=== PATIENT | male | born 1950 | race Caucasian/White ===

== ENCOUNTER 2019-03-02 13:02 | Inpatient (IN) | payer OTHER, BC ==
--- NOTE | 2019-03-02 13:15 | PDOC ---
Rapid Medical Evaluation Time Seen by Provider: 03/02/19 13:13 Medical Evaluation: Allergies Allergy/AdvReac Type Severity Reaction Status Date / Time codeine Allergy Severe Rash Verified 03/02/19 10:46 03/02/19 13:13 I have performed a brief in-person evaluation of this patient The patient present with a chief complaint of: admission for spine surgery. Patient sent from pmd's office for admission through the emergency room for admission for new onset of neck pain with numbness to left arm Pertinent physical exam findings: NAD even and unlabored breathing in a motorized wheelchair I have ordered the following: labs The patient will proceed to the ED for further evaluation. 03/02/19 13:15 Discharge Disposition - Diagnosis Neck pain - Referrals - Patient Instructions - Post Discharge Activity
[2019-03-02 13:19] VITALS: BMI 29.8
--- NOTE | 2019-03-02 14:18 | PDOC ---
History of Present Illness - General Stated Complaint: SURGERY Time Seen by Provider: 03/02/19 13:13 - History of Present Illness Initial Comments: Ciaran Katz is a 68yo man with a PMH of IDDM and BLE weakness, wheelchair bound, with chronic neurological deficits initially due to an injury in 1989, s/ p multiple spinal surgeries who presents for a preoperative workup for a planned cervical spine surgery tomorrow. Mr Katz reports that he initially had a lumbar spine surgery in 1989 following a fall at work. He subsequently had a total of 7 lumbar surgeries and has residual BLE weakness and sensory deficits, now with significant muscle atrophy, and is unable to ambulate. Over time, he had several other surgeries including thoracic and cervical spine. His last 3 surgeries were completed [address] Dr Saavedra in [place] with good results. Over the past year, Mr Katz has had pain shooting down his left arm along with sensation deficit and weakness to the left hand. 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 He was seen by a neurosurgeon in [place] and told there was nothing to be done, but he sent his most recent imaging to Dr Saavedra and was told that he could come to [place] for surgery. He was seen in Dr Saavedra's office today and has a planned corrective surgery tomorrow. He presents for preoperative workup and cardiac clearance for the planned surgery. Mr Katz denies any new symptoms including fever, chills, chest pain, SOB, or new neuro symptoms other than as mentioned above. Past History - Past Medical History Allergies/Adverse Reactions: Allergies Allergy/AdvReac Type Severity Reaction Status Date / Time codeine Allergy Severe Rash Verified 03/02/19 10:46 Home Medications: Ambulatory Orders Duloxetine HCl 1 cap PO DAILY 03/02/19 Fentanyl 50 mcg TP Q3D 03/02/19 Humalog Kwikpen U-200 units SQ TID 03/02/19 Ibuprofen/Famotidine mg PO TID 03/02/19 Metformin HCl 1,000 mg PO DAILY 03/02/19 Oxycodone HCl 5 mg PO PRN PRN 03/02/19 Pennsaid PRN 03/02/19 Phenylephrine HCl 10 mg PRN 03/02/19 Tizanidine HCl 4 mg PO BID 03/02/19 Victoza - 0.6 units DAILY 03/02/19 Zolpidem Tartrate 10 mg PO HS PRN 03/02/19 Cardiac Disorders: Yes (old [place]) Diabetes: Yes - Surgical History Orthopedic Surgery: Yes (7 prior spinal surgeries [id number]) - Suicide/Smoking/Psychosocial Hx Smoking History: Never smoked Have you smoked in the past 12 months: No Information on smoking cessation initiated: No Hx Alcohol Use: No Drug/Substance Use Hx: No Substance Use Type: None Review of Systems - Review of Systems Comments:: General: No fevers, no chills, no weight or appetite change, no malaise HEENT: No changes in vision, no changes in hearing, no congestion, no sore throat CV: No chest pain, no palpitations, no LE edema Pulm: No SOB, no cough, no wheezing GI: No nausea or vomiting, no change in bowel habits, no melena : No frequency, no urgency, no dysuria Musc: No back pain, no joint swelling, no recent injury Skin: No rash, no lesions, no erythema Endo: No excessive thirst, no heat/cold intolerance Heme: No unusual bruising or bleeding, no swollen glands Neuro: No syncope, See HPI Vasc: No claudication Psych: No recent change in mood, no SI or HI *Physical Exam - Vital Signs Last Vital Signs Temp Pulse Resp BP Pulse Ox 98.4 F 78 20 169/80 99 03/02/19 13:14 03/02/19 13:14 03/02/19 13:14 03/02/19 13:14 03/02/19 13:14 - Physical Exam Comments: General: Comfortable, no acute distress HEENT: PERRL, EOMI, MMM, voice normal, normal neck ROM, no LAD Cards: RRR, no murmur appreciated Pulm: Comfortable on room air, clear to auscultation bilaterally Abd: Soft, nontender, nondistended Ext: Atraumatic. No LE edema. Moves all extremities, though weakness in BLE and L hand. 1st and 2nd left fingers "lock" in flexed position. Vasc: Extremities WWP. Skin: Normal color, no rashes or lesions Neuro: A&Ox3, CN grossly intact, normal speech, diminished sensation in BLE and LUE (can feel light touch and pressure but feels abnormal). 3/5 strength in BLE. 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 Psych: Mood appropriate to situation ED Treatment Course - LABORATORY CBC & Chemistry Diagram: 03/02/19 15:21 03/02/19 16:00 - RADIOLOGY Radiology Studies Ordered: Category Date Time Status CHEST PA & LAT [RAD] Stat Radiology 03/02/19 14:16 Ordered Medical Decision Making - Medical Decision Making 03/02/19 14:17 Ciaran Katz is a 68yo man with a PMH of IDDM and chronic BLE neurological deficits, wheelchair bound, who presents from Dr Frederick's office for admission for cervical spine surgery tomorrow due to worsening LUE pain, weakness, and sensory deficit over the past year. - Surgery scheduled with Dr Saavedra tomorrow - Preop workup ordered: CBC, CMP, mag, phos, EKG, CXR, type&screen, coags - Request for cardiology consult; will call after EKG completed 03/02/19 16:04 - Seen by Dr Lopez for admission - Seen by Dr Hicks in cardiology. Plans stress test tomorrow morning prior to surgery; requesting 2 troponins. Ordered and added to labs currently running 03/02/19 16:43 - Labs reviewed, unremarkable - Trop still not running. Lab called to inquire, will check that it was received , report that it will be run. To be repeated at 6hr - Admit to Dr Lopez's service. Discussed with Dr Thompson. Lisa Petersen PGY1 *DC/Admit/Observation/Transfer Diagnosis at time of Disposition: Neck pain, Back pain - Discharge Dispostion Condition at time of disposition: Stable - Referrals - Patient Instructions - Post Discharge Activity
--- NOTE | 2019-03-02 14:19 | PDOC ---
Attending Attestation - HPI HPI: 03/02/19 14:59 The patient is a 68 year old male, with a significant past medical history of DM and multiple lumbar surgeries (wheelchair bound), who presents to the emergency department for pre-op labs and admission for surgery. As per patient, he has spinal fusion and pain radiating down his left arm with decreased muscle strength and sensation. He notes that he is pending surgery with Dr. Saavedra. As per Dr. Saavedra, he would like admission to Dr. Hays service. He denies any recent fevers, chills, headache or dizziness. He denies any recent nausea, vomit, diarrhea or constipation. He denies any recent chest pain or shortness of breath. He denies any recent dysuria, frequency, urgency or hematuria. Allergies: Codeine. Past surgical history: Multiple lumbar surgeries. Social History: Pt. lives in [place] and is visiting [place] for neurosurgery. - Physicial Exam PE: 03/02/19 16:31 GENERAL: The patient is in no acute distress. HEAD: Normal with no signs of trauma. EYES: PERRLA, EOMI, sclera anicteric, conjunctiva clear. ENT: Ears normal, nares patent, oropharynx clear without exudates. Moist mucous membranes. LUNGS: Breath sounds equal, clear to auscultation bilaterally. No wheezes, and no crackles. HEART:Regular rate and rhythm, normal S1 and S2 without murmur, rub or gallop. ABDOMEN: Soft, nontender, normoactive bowel sounds. No guarding, no rebound. No masses palpable. EXTREMITIES: +Wheelchair bound. NEUROLOGICAL: Cranial nerves II through XII grossly intact. Normal speech. No focal neurological deficits. MUSCULOSKELETAL: No CVA tenderness SKIN: Warm, Dry, normal turgor, no rashes or lesions noted. <Mally Gardiner - Last Filed: 03/02/19 16:31> - Resident Resident Name: Lisa Petersen - ED Attending Attestation I have performed the following: I have examined & evaluated the patient, The case was reviewed & discussed with the resident, I agree w/resident's findings & plan, Exceptions are as noted - Medical Decision Making 03/02/19 14:55 68 yo M h/o DM, chronic back pain presenting with a complaint of neck pain and radicular symptoms No trauma Will do labs Will EKG Will plan to Admit Dr Saavedra to see this patient 03/02/19 16:20 EKG - NSR rate of 63 bpm, axis nml, intervals abnormal - Pr: 210ms, QRS:86ms, QTc:nml , no st elevation or depressions 03/02/19 16:29 Laboratory Tests 03/02/19 03/02/19 15:21 15:21 WBC 6.8 Hgb 16.0 Hct 45.7 Plt Count 199 INR 0.96 Admit to [facility] service <Genesis Thompson - Last Filed: 03/03/19 13:19> *DC/Admit/Observation/Transfer <Mally Gardiner - Last Filed: 03/02/19 16:31> - Discharge Dispostion Decision to Admit order: Yes <Genesis Thompson - Last Filed: 03/03/19 13:19> Diagnosis at time of Disposition: Neck pain, Back pain - Discharge Dispostion Condition at time of disposition: Stable Attestations - Attestations 03/02/19 15:00 Documentation prepared by Mally Gardiner, acting as medical affairs manager for Genesis Thompson MD. <Mally Gardiner - Last Filed: 03/02/19 16:31>
--- NOTE | 2019-03-02 15:40 | CON.CARD ---
Consult Consult Specialty:: Cardiology Reason for Consultation:: Preop cardiac eval - History of Present Illness History of Present Illness: 68 M with severe spinal disease post multiple operations. He lives in [place] and traveled here for further cervical spine operation. No previous cardiac disease history. Has long standing insulin requiring DM and is non-ambulatory. There is no previous history of CAD, heart failure or arrhythmia. No prior cardiac complication after surgeries. He uses multiple analgesics for pain control. - History Source History Provided By: Patient Limitations to Obtaining History: No Limitations - Past Medical History Cardio/Vascular: No: Aortic Stenosis, CAD, CHF, HTN, Hyperlipdemia, VA, Mitral Stenosis, Murmur, Pulmonary Hypertension - Alcohol/Substance Use Hx Alcohol Use: No - Smoking History Smoking history: Never smoked Have you smoked in the past 12 months: No Home Medications - Allergies Allergies/Adverse Reactions: Allergies Allergy/AdvReac Type Severity Reaction Status Date / Time codeine Allergy Severe Rash Verified 03/02/19 10:46 - Home Medications Home Medications: Ambulatory Orders Unobtainable 03/02/19 Review of Systems - Review of Systems Constitutional: reports: No Symptoms Eyes: reports: No Symptoms HENT: reports: No Symptoms Neck: reports: No Symptoms Cardiovascular: reports: No Symptoms Respiratory: reports: No Symptoms Gastrointestinal: reports: No Symptoms Genitourinary: reports: No Symptoms Vital Signs: Vital Signs Temperature 98.4 F 03/02/19 13:14 Pulse Rate 78 03/02/19 13:14 Respiratory Rate 20 03/02/19 13:14 Blood Pressure 169/80 03/02/19 13:14 O2 Sat by Pulse Oximetry (%) 99 03/02/19 13:14 Constitutional: Yes: Well Nourished, No Distress Eyes: Yes: Conjunctiva Clear, EOM Intact HENT: Yes: Atraumatic, Normocephalic Neck: Yes: Supple, Trachea Midline Respiratory: Yes: Regular, CTA Bilaterally Gastrointestinal: Yes: Normal Bowel Sounds, Soft Cardiovascular: Yes: Regular Rate and Rhythm JVD: No Carotid Bruit: No PMI: Non-Displaced Heart Sounds: Yes: S1, S2 Murmur: No: Systolic Murmur, Diastolic Murmur Edema: Yes Edema: LLE: 1+, RLE: 1+ Problem List - Problems (1) Back pain Code(s): M54.9 - DORSALGIA, UNSPECIFIED Qualifiers: Back pain location: back pain in other location Chronicity: chronic Qualified Code(s): M54.9 - Dorsalgia, unspecified; G89.29 - Other chronic pain Assessment/Plan Seen in preoperative consultation for spinal surgery. Pt is non-ambulatory with long-standing IRDM. No angina or heart failure symptoms. ECG Lexiscan nuclear stress test as in-patient. Will follow test results and make further recommendations regarding preoperative risk.
[2019-03-02 16:15] LABS: EOS % 3.8 % (0-4.5); HEMATOCRIT 45.7 % (35.4-49); LYMPH % 30.4 % (8-40); MCH 31.6 pg (25.7-33.7); MCHC 35.1 g/dl (32.0-35.9); MEAN PLT VOLUME 8.4 fl (7.5-11.1); MONO % 8.5 % (3.8-10.2); NEUT % 55.3 % (42.8-82.8); PLATELET COUNT 199 K/MM3 (134-434); RBC 5.08 M/mm3 (4.00-5.60); RDW 13.5 % (11.9-15.9); WHITE BLOOD COUNT 6.8 K/mm3 (4.0-10.0)
[2019-03-02 16:26] LABS: INR 0.96 (0.83-1.09); PROTHROMBIN TIME (PATIENT) 11.3 SEC (9.7-13.0)
[2019-03-02 16:29] LABS: ACTIVATED PTT 29.5 SECONDS (25.2-36.5)
[2019-03-02 16:32] LABS: MAGNESIUM 2.3 mg/dL (1.8-2.4); PHOSPHOROUS 4.1 mg/dL (2.5-4.9)
[2019-03-02 16:34] LABS: ALBUMIN 4.2 g/dl (3.4-5.0); ALK PHOS 65 U/L (45-117); ANION GAP 6 MMOL/L (8-16); BILIRUBIN,TOTAL 0.5 mg/dL (0.2-1); BLOOD UREA NITROGEN 17 mg/dL (7-18); CALCIUM 9.1 mg/dL (8.5-10.1); CHLORIDE 106 mmol/L (98-107); CO2 25 mmol/L (21-32); CREATININE 0.7 mg/dL (0.55-1.3); GLUCOSE,RANDOM 99 mg/dL (74-106); POTASSIUM 3.8 mmol/L (3.5-5.1); SGOT/AST 36 U/L (15-37); SGPT/ALT 55 U/L (13-61); SODIUM 138 mmol/L (136-145); TOT PROT 7.5 g/dl (6.4-8.2)
--- NOTE | 2019-03-02 20:48 | HP ---
CHIEF COMPLAINT: Neck Pain, Back Pain, Muscle Weakness PCP: Dr. Frederick HISTORY OF PRESENT ILLNESS: This is a pleasant 68 y/o man from [place] with a PMHx of Diabetes Mellitus, Chronic Back Pain, BLE weakness, wheelchair bound with chronic neurological deficits initially due to an injury in 1989, multiple Spinal Surgeries. Who presents to the ED with a complaint of neck pain and radicular symptoms with decreased muscle strength and sensation. Patient was sent in for admission by Dr. Ledy Saavedra for planned cervical spine surgery tomorrow. Patient denies any new symptoms including fever, chills, SOB, CP, palpitations, AP, N/V/D, constipation. ER course was notable for: (1) (2) (3) Recent Travel: from [place] PAST MEDICAL HISTORY: See HPI PAST SURGICAL HISTORY: See HPI Social History: Smoking: Never Alcohol: None Drugs: None Family History: Allergies codeine Allergy (Severe, Verified 03/02/19 10:46) Rash HOME MEDICATIONS: Home Medications Medication Instructions Recorded Unobtainable 03/02/19 REVIEW OF SYSTEMS CONSTITUTIONAL: Absent: fever, chills, diaphoresis, generalized weakness, malaise, loss of appetite, weight change HEENT: Absent: rhinorrhea, nasal congestion, throat pain, throat swelling, difficulty swallowing, mouth swelling, ear pain, eye pain, visual changes CARDIOVASCULAR: Absent: chest pain, syncope, palpitations, irregular heart rate, lightheadedness , peripheral edema RESPIRATORY: Absent: cough, shortness of breath, dyspnea with exertion, orthopnea, wheezing, stridor, hemoptysis GASTROINTESTINAL: Absent: abdominal pain, abdominal distension, nausea, vomiting, diarrhea, constipation, melena, hematochezia GENITOURINARY: Absent: dysuria, frequency, urgency, hesitancy, hematuria, flank pain, genital pain MUSCULOSKELETAL: back pain, neck pain Absent: myalgia, arthralgia, joint swelling SKIN: Absent: rash, itching, pallor HEMATOLOGIC/IMMUNOLOGIC: Absent: easy bleeding, easy bruising, lymphadenopathy, frequent infections ENDOCRINE: Absent: unexplained weight gain, unexplained weight loss, heat intolerance, cold intolerance NEUROLOGIC: focal weakness or paresthesias unsteady gait Absent: headache, dizziness, seizure, mental status changes, bladder or bowel incontinence PSYCHIATRIC: Absent: anxiety, depression, suicidal or homicidal ideation, hallucinations. PHYSICAL EXAMINATION Vital Signs - 24 hr 03/02/19 03/02/19 13:14 18:49 Temperature 98.4 F 96.1 F L Pulse Rate 78 Pulse Rate [ 65 Right] Respiratory 20 12 Rate Blood Pressure 169/80 Blood Pressure 149/78 [Left] O2 Sat by Pulse 99 Oximetry (%) GENERAL: Awake, alert, and fully oriented, in no acute distress. HEAD: Normal with no signs of trauma. EYES: Pupils equal, round and reactive to light, extraocular movements intact, sclera anicteric, conjunctiva clear. No lid lag. EARS, NOSE, THROAT: Ears normal, nares patent, oropharynx clear without exudates. Moist mucous membranes. NECK: Normal range of motion, supple without lymphadenopathy, JVD, or masses. LUNGS: Breath sounds equal, clear to auscultation bilaterally. No wheezes, and no crackles. No accessory muscle use. HEART: Regular rate and rhythm, normal S1 and S2 without murmur, rub or gallop. ABDOMEN: Soft, nontender, not distended, normoactive bowel sounds, no guarding, no rebound, no masses. No hepatomegaly or splenomegaly. MUSCULOSKELETAL: Normal range of motion at all joints. No bony deformities, No CVA tenderness. Posterior Cervical and Lumbar TTP UPPER EXTREMITIES: 2+ pulses, warm, well-perfused. No cyanosis. No clubbing. No peripheral edema. LOWER EXTREMITIES: 2+ pulses, warm, well-perfused. No calf tenderness. No peripheral edema. NEUROLOGICAL: Cranial nerves II-XII intact. Normal speech. Gait not observed. DTR 0 b/l PSYCHIATRIC: Cooperative. Good eye contact. Appropriate mood and affect. SKIN: Warm, dry, normal turgor, no rashes or lesions noted, normal capillary refill. Laboratory Results - last 24 hr 03/02/19 03/02/19 03/02/19 15:21 15:21 15:21 WBC 6.8 RBC 5.08 Hgb 16.0 Hct 45.7 MCV 90.0 MCH 31.6 MCHC 35.1 RDW 13.5 Plt Count 199 MPV 8.4 Absolute Neuts (auto) 3.7 Neutrophils % 55.3 Lymphocytes % 30.4 Monocytes % 8.5 Eosinophils % 3.8 Basophils % 2.0 Nucleated RBC % 0 PT with INR 11.30 INR 0.96 PTT (Actin FS) 29.5 Sodium Potassium Chloride Carbon Dioxide Anion Gap BUN Creatinine Creat Clearance w eGFR Random Glucose Calcium Phosphorus 4.1 Magnesium 2.3 Total Bilirubin AST ALT Alkaline Phosphatase Creatine Kinase Troponin I Total Protein Albumin Blood Type Antibody Screen 03/02/19 03/02/19 15:21 16:00 WBC RBC Hgb Hct MCV MCH MCHC RDW Plt Count MPV Absolute Neuts (auto) Neutrophils % Lymphocytes % Monocytes % Eosinophils % Basophils % Nucleated RBC % PT with INR INR PTT (Actin FS) Sodium 138 Potassium 3.8 Chloride 106 Carbon Dioxide 25 Anion Gap 6 L BUN 17 Creatinine 0.7 Creat Clearance w eGFR 111.82 Random Glucose 99 Calcium 9.1 Phosphorus Magnesium Total Bilirubin 0.5 AST 36 ALT 55 Alkaline Phosphatase 65 Creatine Kinase 119 Troponin I < 0.02 Total Protein 7.5 Albumin 4.2 Blood Type A POSITIVE Antibody Screen Negative ASSESSMENT/PLAN: This is a 68 y/o man admitted for Intractable Cervical and Lumbar Pain with Radiculopathy for further evaluation of their emergent condition. 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 - New Patient This patient is new to me today: Yes Date on this admission: 03/02/19 - Critical Care Critical Care patient: No
[2019-03-02] MEDS ORDERED: CHLORHEXIDINE GLUCONATE 4% CLEANSER FOR DECOLONIZATION TP SCH (22:00)
[2019-03-03] MEDS ORDERED: DEXTROSE 5%-0.45% SALINE 1,000 ML IV SCH ×3 (00:01→18:37)
[2019-03-03 07:57] LABS: EOS % 5.5 % (0-4.5); HEMATOCRIT 40.9 % (35.4-49); HEMOGLOBIN 14.5 GM/dL (11.7-16.9); LYMPH % 29.6 % (8-40); MCH 31.7 pg (25.7-33.7); MCHC 35.5 g/dl (32.0-35.9); MEAN CELL VOLUME 89.4 fl (80-96); MEAN PLT VOLUME 8.3 fl (7.5-11.1); MONO % 9.9 % (3.8-10.2); PLATELET COUNT 185 K/MM3 (134-434); RBC 4.58 M/mm3 (4.00-5.60); RDW 13.1 % (11.9-15.9); WHITE BLOOD COUNT 5.3 K/mm3 (4.0-10.0)
[2019-03-03 08:51] LABS: ANION GAP 8 MMOL/L (8-16); BLOOD UREA NITROGEN 15 mg/dL (7-18); CHLORIDE 107 mmol/L (98-107); CO2 24 mmol/L (21-32); CREATININE 0.7 mg/dL (0.55-1.3); GLUCOSE,RANDOM 180 mg/dL (74-106); POTASSIUM 3.7 mmol/L (3.5-5.1); SODIUM 138 mmol/L (136-145)
[2019-03-03] MEDS ORDERED: REGADENOSON 0.4 MG/5 ML PRE-FILLED SYRINGE IVPUSH ONE ×2 (09:22→09:45)
--- NOTE | 2019-03-03 10:10 | PN ---
Progress Note, Physician History of Present Illness: seen and examined today in nad. no overnight events. no new complaints. - Current Medication List Current Medications: Active Medications Dextrose/Sodium Chloride (D5-1/2ns -) 1,000 mls @ 75 mls/hr IV ASDIR ELKE Last Admin: 03/03/19 00:48 Dose: 75 mls/hr - Objective Vital Signs: Vital Signs Temperature 98 F 03/03/19 06:00 Pulse Rate 66 03/03/19 06:00 Respiratory Rate 18 03/03/19 06:00 Blood Pressure 165/86 03/03/19 06:00 O2 Sat by Pulse Oximetry (%) 99 03/02/19 13:14 Constitutional: Yes: No Distress, Calm Eyes: Yes: Conjunctiva Clear, EOM Intact HENT: Yes: Atraumatic, Normocephalic Neck: Yes: Supple, Trachea Midline Cardiovascular: Yes: Regular Rate and Rhythm, S1, S2. No: Bradycardia, Tachycardia, Pulse Irregular, Bruit, JVD, Gallop, Murmur, Rub, S3, S4, Varicosities Respiratory: Yes: Regular, CTA Bilaterally. No: Rales, Rhonchi, Wheezes Gastrointestinal: Yes: Normal Bowel Sounds, Soft. No: Distention, Tenderness Edema: No Peripheral Pulses WNL: Yes Neurological: Yes: Alert, Oriented Psychiatric: Yes: Alert, Oriented Labs: CBC, BMP 03/03/19 07:00 03/03/19 07:00 INR, PTT INR 0.96 (0.83-1.09) 03/02/19 15:21 - ....Imaging Chest X-ray: Report Reviewed, Image Reviewed EKG: Report Reviewed, Image Reviewed Other: Report Reviewed, Image Reviewed Assessment/Plan Seen in preoperative consultation for spinal surgery. Pt is non-ambulatory with long-standing IRDM. No angina or heart failure symptoms. Preop for spinal surgery Fup ECG Lexiscan nuclear stress test today Echo done today. BP is above intermediate designer goal but is adequate for surgery, likely exacerbated by discomfort. Monitor BP perioperatively and treat as needed. If no significant ischemia on nuclear stress test and no significant structural abnl on echo pt would be acceptable to proceed from a cardiac standpoint.
[2019-03-03] MEDS ORDERED: oxyCODONE HCL 5 MG TABLET PO PRN (11:22)
[2019-03-03] MEDS ORDERED: FENTANYL PATCH WASTE TD PRN ×3 (11:23→18:43)
--- NOTE | 2019-03-03 11:27 | PN ---
Progress Note, Physician Chief Complaint: 1st degree AV block Pre-op Cervical laminectomy Paraplegia History of Present Illness: NAD Fup ECG Lexiscan nuclear stress test today Echo done today. 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 Monitor BP perioperatively and treat as needed. If no significant ischemia on nuclear stress test and no significant structural abnl on echo pt would be acceptable to proceed from a cardiac standpoint. Seen by cardiology - Current Medication List Current Medications: Active Medications Dextrose/Sodium Chloride (D5-1/2ns -) 1,000 mls @ 75 mls/hr IV ASDIR ELKE Last Admin: 03/03/19 00:48 Dose: 75 mls/hr - Objective Vital Signs: Vital Signs Temperature 98 F 03/03/19 06:00 Pulse Rate 66 03/03/19 06:00 Respiratory Rate 18 03/03/19 06:00 Blood Pressure 165/86 03/03/19 06:00 O2 Sat by Pulse Oximetry (%) 99 03/02/19 13:14 Constitutional: Yes: Well Nourished, No Distress, Calm Cardiovascular: Yes: Regular Rate and Rhythm Respiratory: Yes: Regular Gastrointestinal: Yes: WNL Genitourinary: Yes: WNL Musculoskeletal: Yes: Other (BLLE wekaness) Edema: No Peripheral Pulses WNL: Yes Neurological: Yes: Alert, Oriented Psychiatric: Yes: Alert, Oriented Labs: CBC, BMP 03/03/19 07:00 03/03/19 07:00 INR, PTT INR 0.96 (0.83-1.09) 03/02/19 15:21 Problem List - Problems (1) Cervical spondylitis Assessment/Plan: -Seen by Neurosurgery -plan for cervical laminectomy and exploration TODAY -awaiting cardiology clearance -awaiting stress test, ecg -echo results pending Code(s): M46.92 - UNSPECIFIED INFLAMMATORY SPONDYLOPATHY, CERVICAL REGION (2) Paraplegia Code(s): G82.20 - PARAPLEGIA, UNSPECIFIED (3) Muscle weakness of extremity Code(s): M62.81 - MUSCLE WEAKNESS (GENERALIZED) (4) Diabetes Assessment/Plan: -BGM AC HS -Novolog sliding scale -check A1c Code(s): E11.9 - TYPE 2 DIABETES MELLITUS WITHOUT COMPLICATIONS Qualifiers: Diabetes mellitus type: type 2 (5) HTN (hypertension) Assessment/Plan: -decrease IVF -Lisinopril 5 mg po daily Code(s): I10 - ESSENTIAL (PRIMARY) HYPERTENSION Assessment/Plan See problem list Pending cardiology clearance, pt is medically stable for surgery with acceptable OR risks.
[2019-03-03] MEDS ORDERED: BENZOIN TINCTURE SWABSTICK TP ONE (11:28)
[2019-03-03] MEDS ORDERED: BUPIVACAINE HCL/PF 0.5% (5MG/ML) 10 ML VIAL ONE (11:28)
[2019-03-03] MEDS ORDERED: GENTAMICIN SO4 80 MG/2 ML VIAL ONE ×2 (11:28→17:24)
[2019-03-03] MEDS ORDERED: LIDOCAINE 1%-EPI 1:100,000 30 ML MDV IJ ONE ×2 (11:28→16:58)
[2019-03-03] MEDS ORDERED: THROMBIN (BOVINE) 20,000 UNIT VIAL TP ONE ×3 (11:29→17:19)
[2019-03-03] MEDS ORDERED: LISINOPRIL 5 MG TABLET (FP) PO SCH (11:30)
[2019-03-03] MEDS ORDERED: fentaNYL 50mcg/hr PATCH.TD72 TD SCH (11:30)
[2019-03-03] MEDS ORDERED: DULoxetine HCL 30 MG CAPSULE.DR (FP) PO SCH (11:30)
--- NOTE | 2019-03-03 12:24 | PN ---
Progress Note (short form) - Note Progress Note: Nuclear stress test showed no ischemia and normal LVEF. Echo showed Normal LV systolic function and no significant valvular abnormalities. No additional cardiac testing is needed preoperatively. Pt is acceptable from a cardiac standpoint to proceed with surgery with perioperative recommendations as previously stated.
[2019-03-03] MEDS ORDERED: BACITRACIN 15 GM TUBE TOPICAL OINTMENT ONE (12:38)
[2019-03-03] MEDS ORDERED: ONDANSETRON 4 MG/2 ML VIAL ONE (12:44)
[2019-03-03] MEDS ORDERED: ceFAZolin SODIUM 1 GM VIAL ONE ×2 (12:44→16:59)
[2019-03-03] MEDS ORDERED: SODIUM CHLORIDE 0.9% P/F 10 ML VIAL IJ ONE ×2 (12:44→13:36)
[2019-03-03] MEDS ORDERED: LIDOCAINE HCL/PF 2% SDV 5ML VIAL ONE (12:44)
[2019-03-03] MEDS ORDERED: DEXAMETHASONE SOD PHOSPHATE 4 MG/1 ML VIAL ONE (12:44)
[2019-03-03] MEDS ORDERED: PROPOFOL 20 ML ONE ×2 (12:47→13:49)
[2019-03-03] MEDS ORDERED: ROCURONIUM BROMIDE 50 MG/5 ML VIAL ONE ×3 (12:48→16:10)
[2019-03-03] MEDS ORDERED: MIDAZOLAM HCL 2 MG/2 ML SINGLE DOSE VIAL ONE (12:48)
[2019-03-03] MEDS ORDERED: KETAMINE HCL 200 MG/20 ML VIAL ONE (12:52)
[2019-03-03] MEDS ORDERED: DEXMEDETOMIDINE HCL 200 MCG/2 ML IVPB ONE (13:01)
[2019-03-03] MEDS ORDERED: MAGNESIUM SULF 50% (8.12 MEQ/2 ML-1 GM VIAL) ONE (13:01)
[2019-03-03] MEDS ORDERED: BUPIVACAINE HCL/PF 0.25% (2.5MG/ML) 10 ML VIAL ONE (13:19)
[2019-03-03] MEDS ORDERED: BUPIVACAINE LIPOSOME/PF (EXPAREL) 266 MG/20 ML VIAL ONE (13:38)
[2019-03-03] MEDS ORDERED: VANCOMYCIN 1,000 MG VIAL (RESTRICTED TO ID ONLY) ONE (13:45)
[2019-03-03] MEDS ORDERED: ceFAZolin SODIUM 1 GM VIAL IVPB ONE ×3 (14:07)
[2019-03-03] MEDS ORDERED: VANCOMYCIN 1,000 MG VIAL (RESTRICTED TO ID ONLY) IVPB ONE ×2 (14:07)
[2019-03-03] MEDS ORDERED: LIDOCAINE 1%/EPI 1:100000 (20 ML MULTI DOSE VIAL) IJ ONE ×2 (14:13)
[2019-03-03] MEDS ORDERED: GLYCOPYRROLATE 0.2 MG/1 ML VIAL ONE ×2 (14:38→17:15)
[2019-03-03] MEDS ORDERED: DESFLURANE GAS 240 ML BOTTLE IH ONE (14:43)
[2019-03-03] MEDS ORDERED: BUPIVACAINE HCL/PF 0.25% (2.5MG/ML) 10 ML VIAL IJ ONE (16:13)
[2019-03-03] MEDS ORDERED: BUPIVACAINE LIPOSOME/PF (EXPAREL) 266 MG/20 ML VIAL NR ONE (16:13)
[2019-03-03] MEDS ORDERED: NEOSTIGMINE METHYLSULFATE 0.5 MG/1 ML - 10 ML MDV ONE (17:10)
[2019-03-03] MEDS ORDERED: ONDANSETRON 4 MG/2 ML VIAL IVPUSH PRN ×3 (18:11→18:37)
[2019-03-03] MEDS ORDERED: HYDROmorphone *PCA* 10MG/50ML DISP.SYRIN PCA SCH (18:15)
[2019-03-03] MEDS ORDERED: LACTATED RINGERS SOLUTION 1,000 ML IV SCH ×2 (18:15→18:37)
[2019-03-03] MEDS: HYDROmorphone *PCA* 10MG/50ML DISP.SYRIN PCA SCH (18:20)
[2019-03-03] MEDS ORDERED: diphenhydrAMINE HCL 25 MG CAPSULE (FP) PO PRN (18:30)
[2019-03-03] MEDS ORDERED: FENTANYL PATCH WASTE MC PRN (18:37)
--- NOTE | 2019-03-03 19:02 | OP ---
Operative Note - Note: Operative Date: 03/03/19 Pre-Operative Diagnosis: Cervical Spondylosis and kyphosis Operation: Exploration of spinal fusion with C2-C7 Laminectomies and shinto of lordosis with Lateral mass screw instrumentation, Exploration of spinal fusion and removal of anterior plate/hardware. Post-Operative Diagnosis: Same as Pre-op Surgeon: Luc Saavedra Button Sewer Hand: Cierra Murphy Anesthesiologist/CARD DOFFER: Jarek Arellano Anesthesia: General, Local Specimens Removed: anterior plate and screws Estimated Blood Loss (mls): 320 Drains & Tubes with Location: JORGE Right paravetebral c-spine Drains, Volume Out (mls): 400 (quintanilla) Fluid Volume Replaced (mls): 1,900 Operative Report Dictated: Yes
[2019-03-03] MEDS: SODIUM CHLORIDE 1,000 ML IV SCH (20:30)
[2019-03-03] MEDS ORDERED: TIZANIDINE HCL 2 MG TABLET PO SCH (22:00)
[2019-03-03] MEDS ORDERED: DOCUSATE SODIUM 100 MG CAPSULE (FP) PO SCH ×2 (22:00)
[2019-03-03] MEDS ORDERED: TIZANIDINE HCL 4 MG TABLET PO SCH (22:00)
[2019-03-03] MEDS: DOCUSATE SODIUM 100 MG CAPSULE (FP) PO SCH (22:21)
[2019-03-03] MEDS: HEPARIN NA (PORCINE) 5,000 UNITS/ML 1ML VIAL SQ SCH (22:21)
[2019-03-03] MEDS ORDERED: ZOLPIDEM TARTRATE 5 MG TABLET PO ONE (22:45)
[2019-03-04] MEDS: CEFAZOLIN 1 GM/D5W 1 GM/50 ML BAG IVPB SCH ×3 (01:00→17:13)
[2019-03-04] MEDS: HYDROmorphone *PCA* 10MG/50ML DISP.SYRIN PCA SCH ×2 (04:45→19:38)
[2019-03-04] MEDS: HEPARIN NA (PORCINE) 5,000 UNITS/ML 1ML VIAL SQ SCH ×3 (06:25→22:28)
[2019-03-04] MEDS: DOCUSATE SODIUM 100 MG CAPSULE (FP) PO SCH ×3 (06:25→22:27)
[2019-03-04] MEDS: TIZANIDINE HCL 4 MG TABLET PO SCH ×3 (06:26→14:35)
[2019-03-04] MEDS: INSULIN SLIDING SCALE (NOVOLOG) 1 VIAL SQ SCH ×4 (06:27→17:13)
[2019-03-04] MEDS: SODIUM CHLORIDE 1,000 ML IV SCH ×2 (06:32→11:57)
[2019-03-04] MEDS ORDERED: metFORMIN HCL 500 MG TABLET (FP) PO SCH (07:00)
[2019-03-04 07:03] LABS: BASO % 0.4 % (0-2.0); EOS % 0.1 % (0-4.5); HEMATOCRIT 36.8 % (35.4-49); HEMOGLOBIN 12.6 GM/dL (11.7-16.9); LYMPH % 5.8 % (8-40); MCH 30.9 pg (25.7-33.7); MCHC 34.4 g/dl (32.0-35.9); MEAN CELL VOLUME 89.9 fl (80-96); MEAN PLT VOLUME 8.4 fl (7.5-11.1); MONO % 10.5 % (3.8-10.2); NEUT % 83.2 % (42.8-82.8); PLATELET COUNT 208 K/MM3 (134-434); RBC 4.09 M/mm3 (4.00-5.60); RDW 13.2 % (11.9-15.9)
[2019-03-04 07:51] LABS: ALBUMIN 3.3 g/dl (3.4-5.0); ALK PHOS 49 U/L (45-117); ANION GAP 7 MMOL/L (8-16); BILIRUBIN,TOTAL 0.6 mg/dL (0.2-1); BLOOD UREA NITROGEN 15 mg/dL (7-18); CALCIUM 8.2 mg/dL (8.5-10.1); CHLORIDE 108 mmol/L (98-107); CO2 27 mmol/L (21-32); CREATININE 0.7 mg/dL (0.55-1.3); GLUCOSE,RANDOM 177 mg/dL (74-106); POTASSIUM 4.4 mmol/L (3.5-5.1); SGOT/AST 28 U/L (15-37); SGPT/ALT 36 U/L (13-61); SODIUM 142 mmol/L (136-145); TOT PROT 5.8 g/dl (6.4-8.2)
--- NOTE | 2019-03-04 08:53 | PN ---
Progress Note (short form) - Note Progress Note: Surgery POD #1 Exploration of spinal fusion with C2-C7 Laminectomies and holiness of lordosis with Lateral mass screw instrumentation, Exploration of spinal. Patient seen and examined at bedside c/o pain control issues overnight which have improved this morning. He states his UE radicular pain L>R is unchanged from his pre-op symptoms with no new symptoms. He denies any SOB, N/V Fever or chills. Vital Signs Temp 99.1 F 03/04/19 06:46 Pulse 96 H 03/04/19 06:56 Resp 18 03/04/19 06:56 BP 136/71 03/04/19 06:56 Pulse Ox 99 03/03/19 22:00 Intake & Output 03/03/19 03/03/19 03/04/19 11:59 23:59 11:59 Intake Total 450 2275 1000 Output Total 375 1660 520 Balance 75 615 480 Intake: IV 450 2275 950 D5-1/2Ns - 1,000 ml @ 75 450 75 mls/hr IV ASDIR ELKE Rx#: [id number] Normal Saline - 1,000 ml 950 @ 100 mls/hr IV ASDIR ELKE Rx#:[id number] IVPB 50 Output: Drainage 40 20 Right Neck 20 Urine 375 1300 500 Void 375 300 500 Estimated Blood Loss 320 Other: Voiding Method Urinal Indwelling Catheter # Unmeasured Voids Void 2 Bowel Movement No CBC, BMP 03/04/19 05:30 03/04/19 05:30 PE: A&Ox3, NAD Unlabored resp on RA Neck: Anterior dressing C/D/I with surrounding tissue intact, mild edema with no evidence to tracking erythema, no evidence of active d/c. Trachea midline with no deviation. Posterior dressing C/D/I with surrounding tissue intact, mild edema with no evidence to tracking erythema, no evidence of active d/c. Drain in good position with Doug bloody d/c. B/L US 5/5 loan consultant strength, with sensation to light touch intact throughout. B/L LE Compartments soft, supple and non-tender to palpation, feet warm and well perfused with + dp pulses. Problem List - Problems (1) Status post cervical spinal fusion Assessment/Plan: POD #1 cervical laminectomy/ deocompression and fusion with anterior JOSE FRANCISCO, patient doing well with pain now controlled. 1) pain consult today ordered with Dr Liriano 2) Continue c-collar 23 hours day 3) OOB to chair as tolerated with PT 4) Continue DVT prophylaxis with b/l scds, and SQ heparin Evaluation and plan discussed with Dr Saavedra Code(s): Z98.1 - ARTHRODESIS STATUS
[2019-03-04] MEDS: LISINOPRIL 5 MG TABLET (FP) PO SCH ×2 (09:09→10:04)
[2019-03-04] MEDS: DULoxetine HCL 30 MG CAPSULE.DR (FP) PO SCH (09:09)
[2019-03-04] MEDS: FERROUS SO4 325 MG TABLET (FP) PO SCH (09:09)
[2019-03-04] MEDS: FOLIC ACID 1 MG TABLET (FP) PO SCH (09:10)
[2019-03-04] MEDS ORDERED: DULOXETINE HCL PO SCH (10:00)
--- NOTE | 2019-03-04 11:34 | PN ---
Progress Note, Physician Chief Complaint: 1st degree AV block Pre-op Cervical laminectomy Paraplegia History of Present Illness: NAD S/P cervical laminectomy and exploration Seen by cardiology - Current Medication List Current Medications: Active Medications Diphenhydramine HCl (Benadryl -) 25 mg PO Q6H PRN PRN Reason: FOR ITCHING Docusate Sodium (Colace -) 100 mg PO TID [facility] Last Admin: 03/04/19 06:25 Dose: 100 mg Duloxetine HCl (Cymbalta -) 60 mg PO DAILY [facility] Last Admin: 03/04/19 09:09 Dose: 60 mg Fentanyl (Duragesic 50mcg Patch -) 1 patch TD Q72H [facility] Stop: 03/10/19 11:24 Ferrous Sulfate (Feosol -) 325 mg PO DAILY@0800 [facility] Last Admin: 03/04/19 09:09 Dose: 325 mg Folic Acid (Folic Acid -) 1 mg PO DAILY [facility] Last Admin: 03/04/19 09:10 Dose: 1 mg Heparin Sodium (Porcine) (Heparin -) 5,000 unit SQ TID [facility] Last Admin: 03/04/19 06:25 Dose: 5,000 unit Hydromorphone HCl (Dilaudid Plasterer Journeyman -) 10 mg BLOCK CHOPPER HAND BLOCK CHOPPER HAND [facility]; Protocol Stop: 03/06/19 18:12 Last Admin: 03/04/19 04:45 Dose: 10 mg Cefazolin Sodium (Ancef 1 Gm Premixed Ivpb -) 1 gm in 50 mls @ 100 mls/hr IVPB Q8H [facility] Last Admin: 03/04/19 09:09 Dose: 100 mls/hr Sodium Chloride (Normal Saline -) 1,000 mls @ 125 mls/hr IV ASDIR [facility] Insulin Aspart (Novolog Vial Sliding Scale -) 1 vial SQ TIDAC [facility]; Protocol Last Admin: 03/04/19 07:45 Dose: Not Given Miscellaneous (Duragesic Patch Waste) 1 each MC PRN PRN PRN Reason: PAIN Ondansetron HCl (Zofran Injection) 4 mg IVPUSH Q6H PRN PRN Reason: NAUSEA Tizanidine HCl (Tizanidine Hcl) 4 mg PO TID [facility] Last Admin: 03/04/19 06:26 Dose: 4 mg - Objective Vital Signs: Vital Signs Temperature 98.9 F 03/04/19 10:46 Pulse Rate 84 04/03/19 10:46 Respiratory Rate 20 03/04/19 10:46 Blood Pressure 104/57 L 03/04/19 10:46 O2 Sat by Pulse Oximetry (%) 99 03/03/19 22:00 Constitutional: Yes: Well Nourished, No Distress, Calm Neck: Yes: Decreased ROM, Other (neck collar) Cardiovascular: Yes: Regular Rate and Rhythm Respiratory: Yes: Regular Gastrointestinal: Yes: Normal Bowel Sounds, Soft Musculoskeletal: Yes: Back Pain, Muscle Weakness Extremities: Yes: WNL Edema: No Peripheral Pulses WNL: Yes Neurological: Yes: Alert, Oriented Psychiatric: Yes: Alert, Oriented Labs: CBC, BMP 03/04/19 05:30 03/04/19 05:30 INR, PTT INR 0.96 (0.83-1.09) 03/02/19 15:21 Problem List - Problems (1) Cervical spondylitis Assessment/Plan: -Seen by Neurosurgery -s/p cervical laminectomy and exploration -On BLOCK CHOPPER HAND -Seen by Dr Liriano-pain management -change pain medicaion regimen as follows: d/c fentanyl and oxycodone d/c BLOCK CHOPPER HAND in AM start MS contin 15 mg po bid with MS IR 15 Q6H PRN Start Gabapentin 300 mg po tid Code(s): M46.92 - UNSPECIFIED INFLAMMATORY SPONDYLOPATHY, CERVICAL REGION (2) Paraplegia Code(s): G82.20 - PARAPLEGIA, UNSPECIFIED (3) Muscle weakness of extremity Code(s): M62.81 - MUSCLE WEAKNESS (GENERALIZED) (4) Diabetes Assessment/Plan: -BGM AC HS -Novolog sliding scale -A1c 6.4 Code(s): E11.9 - TYPE 2 DIABETES MELLITUS WITHOUT COMPLICATIONS Qualifiers: Diabetes mellitus type: type 2 (5) HTN (hypertension) Assessment/Plan: -monitor trend -became hypotensive this AM -hold lisinopril -Increase IVF to 125 ml/hr Code(s): I10 - ESSENTIAL (PRIMARY) HYPERTENSION Assessment/Plan See problem list Rehab as per surgery
[2019-03-04] MEDS ORDERED: morphine SULFATE IMMEDIATE RELEASE 30 MG TAB PO PRN (11:51)
[2019-03-04] MEDS: morphine SO4 SUSTAINED ACTING 15 MG TABLET.SA PO SCH ×2 (12:38→22:27)
--- NOTE | 2019-03-04 14:14 | PN ---
Progress Note (short form) - Note Progress Note: ANESTHESIA POSTOP 68 YO MALE POD#1 C2-C7 STABILIZATION UNDER GA FOR ACUTE SPINAL SYNDROME Patient resting comfortably in bed. Reports pain is better controlled today. He has been OOB to chair and uses his IS as directed. Tolerating PO. VSS, afebrile Continue current care, encouraged ambulation per orders and use of IS. No anesthetic complications. Will continue to follow ARMY MANAGER use.
--- NOTE | 2019-03-04 14:31 | PN ---
Progress Note, Physician Chief Complaint: Pain is mostly controlled. No dyspnea, chest pain - Current Medication List Current Medications: Active Medications Diphenhydramine HCl (Benadryl -) 25 mg PO Q6H PRN PRN Reason: FOR ITCHING Docusate Sodium (Colace -) 100 mg PO TID [facility] Last Admin: 03/04/19 06:25 Dose: 100 mg Duloxetine HCl (Cymbalta -) 60 mg PO DAILY [facility] Last Admin: 03/04/19 09:09 Dose: 60 mg Ferrous Sulfate (Feosol -) 325 mg PO DAILY@0800 [facility] Last Admin: 03/04/19 09:09 Dose: 325 mg Folic Acid (Folic Acid -) 1 mg PO DAILY [facility] Last Admin: 03/04/19 09:10 Dose: 1 mg Gabapentin (Neurontin -) 300 mg PO TID [facility] Heparin Sodium (Porcine) (Heparin -) 5,000 unit SQ TID [facility] Last Admin: 03/04/19 06:25 Dose: 5,000 unit Hydromorphone HCl (Dilaudid Sales Assistant Displays -) 10 mg AIR BRAKE TESTER AIR BRAKE TESTER [facility]; Protocol Stop: 03/06/19 18:12 Last Admin: 03/04/19 04:45 Dose: 10 mg Cefazolin Sodium (Ancef 1 Gm Premixed Ivpb -) 1 gm in 50 mls @ 100 mls/hr IVPB Q8H [facility] Last Admin: 03/04/19 09:09 Dose: 100 mls/hr Sodium Chloride (Normal Saline -) 1,000 mls @ 125 mls/hr IV ASDIR [facility] Last Admin: 03/04/19 11:57 Dose: 125 mls/hr Insulin Aspart (Novolog Vial Sliding Scale -) 1 vial SQ TIDAC [facility]; Protocol Last Admin: 03/04/19 11:56 Dose: 4 units Miscellaneous (Duragesic Patch Waste) 1 each MC PRN PRN PRN Reason: PAIN Morphine Sulfate (Msir -) 15 mg PO Q6H PRN PRN Reason: PAIN LEVEL 6-10 Morphine Sulfate (Ms Contin -) 15 mg PO BID [facility] Last Admin: 03/04/19 12:38 Dose: 15 mg Ondansetron HCl (Zofran Injection) 4 mg IVPUSH Q6H PRN PRN Reason: NAUSEA Tizanidine HCl (Tizanidine Hcl) 4 mg PO TID [facility] Last Admin: 03/04/19 06:26 Dose: 4 mg - Objective Vital Signs: Vital Signs Temperature 98.9 F 03/04/19 10:46 Pulse Rate 84 03/04/19 10:46 Respiratory Rate 20 03/04/19 12:45 Blood Pressure 104/57 L 03/04/19 10:46 O2 Sat by Pulse Oximetry (%) 99 03/03/19 22:00 Constitutional: Yes: Well Nourished, No Distress Eyes: Yes: Conjunctiva Clear HENT: Yes: Normocephalic Neck: Yes: Supple, Trachea Midline Cardiovascular: Yes: Regular Rate and Rhythm, S1, S2. No: JVD Respiratory: Yes: Regular, CTA Bilaterally Edema: No Labs: CBC, BMP 03/04/19 05:30 03/04/19 05:30 INR, PTT INR 0.96 (0.83-1.09) 03/02/19 15:21 Problem List - Problems (1) Back pain Code(s): M54.9 - DORSALGIA, UNSPECIFIED Assessment/Plan No evidence of ischemic heart disease on preoperative testing. Normal LV function. Continue primary prevention. Will see as needed.
[2019-03-04] MEDS: GABAPENTIN 300 MG CAPSULE (FP) PO SCH ×2 (14:35→22:28)
[2019-03-05] MEDS: CEFAZOLIN 1 GM/D5W 1 GM/50 ML BAG IVPB SCH ×3 (00:04→18:32)
[2019-03-05] MEDS: TIZANIDINE HCL 4 MG TABLET PO SCH ×4 (00:04→21:37)
[2019-03-05] MEDS: HYDROmorphone *PCA* 10MG/50ML DISP.SYRIN PCA SCH (01:57)
[2019-03-05] MEDS: HEPARIN NA (PORCINE) 5,000 UNITS/ML 1ML VIAL SQ SCH ×3 (05:59→21:38)
[2019-03-05] MEDS: INSULIN SLIDING SCALE (NOVOLOG) 1 VIAL SQ SCH ×3 (05:59→18:32)
[2019-03-05] MEDS: GABAPENTIN 300 MG CAPSULE (FP) PO SCH ×3 (05:59→21:37)
[2019-03-05] MEDS: DOCUSATE SODIUM 100 MG CAPSULE (FP) PO SCH ×3 (05:59→21:38)
[2019-03-05] MEDS ORDERED: INSULIN (NOVOLOG) ASPART 100 UNITS/ML 10ML VIAL ONE (06:47)
[2019-03-05] MEDS: FERROUS SO4 325 MG TABLET (FP) PO SCH (07:55)
[2019-03-05 08:59] LABS: BASO % 0.6 % (0-2.0); EOS % 2.8 % (0-4.5); HEMATOCRIT 30.3 % (35.4-49); HEMOGLOBIN 10.6 GM/dL (11.7-16.9); LYMPH % 11.4 % (8-40); MCH 31.6 pg (25.7-33.7); MCHC 34.9 g/dl (32.0-35.9); MEAN CELL VOLUME 90.7 fl (80-96); MEAN PLT VOLUME 8.4 fl (7.5-11.1); MONO % 10.9 % (3.8-10.2); NEUT % 74.3 % (42.8-82.8); PLATELET COUNT 125 K/MM3 (134-434); RBC 3.34 M/mm3 (4.00-5.60)
[2019-03-05 09:15] LABS: ALBUMIN 2.8 g/dl (3.4-5.0); ALK PHOS 43 U/L (45-117); ANION GAP 5 MMOL/L (8-16); BILIRUBIN,TOTAL 0.7 mg/dL (0.2-1); BLOOD UREA NITROGEN 13 mg/dL (7-18); CALCIUM 7.8 mg/dL (8.5-10.1); CHLORIDE 103 mmol/L (98-107); CO2 28 mmol/L (21-32); CREATININE 0.5 mg/dL (0.55-1.3); GLUCOSE,RANDOM 213 mg/dL (74-106); POTASSIUM 4.4 mmol/L (3.5-5.1); SGOT/AST 21 U/L (15-37); SGPT/ALT 26 U/L (13-61); SODIUM 136 mmol/L (136-145); TOT PROT 5.3 g/dl (6.4-8.2)
[2019-03-05] MEDS: FOLIC ACID 1 MG TABLET (FP) PO SCH (10:09)
[2019-03-05] MEDS: DULoxetine HCL 30 MG CAPSULE.DR (FP) PO SCH (10:09)
[2019-03-05] MEDS: morphine SO4 SUSTAINED ACTING 15 MG TABLET.SA PO SCH (10:10)
[2019-03-05] MEDS ORDERED: ONDANSETRON 4 MG/2 ML VIAL IVPUSH PRN ×2 (10:54→18:34)
[2019-03-05] MEDS ORDERED: DEXAMETHASONE SOD PHOSPHATE 4 MG/1 ML VIAL IVPUSH PRN (10:54)
[2019-03-05] MEDS ORDERED: PROMETHAZINE HCL 25 MG/1 ML VIAL IVPB PRN (10:54)
[2019-03-05] MEDS ORDERED: HYDROmorphone *PCA* 10MG/50ML DISP.SYRIN PCA SCH ×2 (11:00→18:34)
[2019-03-05] MEDS ORDERED: LACTATED RINGERS SOLUTION 1,000 ML IV SCH (11:00)
[2019-03-05] MEDS ORDERED: MIDAZOLAM HCL 2 MG/2 ML SINGLE DOSE VIAL ONE (11:03)
[2019-03-05] MEDS ORDERED: PROPOFOL 20 ML ONE (11:03)
[2019-03-05] MEDS ORDERED: ROCURONIUM BROMIDE 50 MG/5 ML VIAL ONE ×2 (11:04→13:20)
[2019-03-05] MEDS ORDERED: LIDOCAINE HCL/PF 2% SDV 5ML VIAL ONE (11:04)
[2019-03-05] MEDS ORDERED: DESFLURANE GAS 240 ML BOTTLE IH ONE (11:44)
[2019-03-05 11:55] LABS: PLATELET ESTIMATE SLT DECREASE
[2019-03-05] MEDS ORDERED: LIDOCAINE 1%/EPI 1:100000 (50 ML MULTI DOSE VIAL) INF ONE (11:56)
[2019-03-05] MEDS ORDERED: ceFAZolin SODIUM 1 GM VIAL IVPB ONE (12:00)
[2019-03-05] MEDS ORDERED: SODIUM CHLORIDE 0.9% P/F 10 ML VIAL IJ ONE ×2 (12:01→12:15)
[2019-03-05] MEDS ORDERED: ceFAZolin SODIUM 1 GM VIAL ONE (12:01)
[2019-03-05] MEDS ORDERED: VANCOMYCIN 1,000 MG VIAL (RESTRICTED TO ID ONLY) ONE (12:01)
[2019-03-05] MEDS ORDERED: ONDANSETRON 4 MG/2 ML VIAL ONE (12:02)
[2019-03-05] MEDS ORDERED: VANCOMYCIN 1,000 MG VIAL (RESTRICTED TO ID ONLY) IVPB ONE (12:02)
[2019-03-05] MEDS ORDERED: DEXAMETHASONE SOD PHOSPHATE 4 MG/1 ML VIAL ONE (12:02)
[2019-03-05] MEDS ORDERED: ePHEDrine SULFATE 50 MG/1 ML AMPULE ONE (12:14)
[2019-03-05] MEDS ORDERED: HYDROGEN PEROXIDE 473 ML PO ONE (12:18)
[2019-03-05] MEDS ORDERED: BACITRACIN 50,000 UNITS VIAL TP ONE (12:18)
[2019-03-05] MEDS ORDERED: THROMBIN (BOVINE) 5,000 UNIT VIAL TP ONE (12:18)
[2019-03-05] MEDS ORDERED: GENTAMICIN SO4 80 MG/2 ML VIAL IVPB ONE (12:18)
[2019-03-05] MEDS ORDERED: GELATIN, ABSORBABLE 12-7MM EACH SPONGE TP ONE (12:18)
[2019-03-05] MEDS ORDERED: GENTAMICIN SO4 80 MG/2 ML VIAL ONE (13:31)
[2019-03-05] MEDS ORDERED: GLYCOPYRROLATE 0.2 MG/1 ML VIAL ONE (13:55)
[2019-03-05] MEDS ORDERED: NEOSTIGMINE METHYLSULFATE 0.5 MG/1 ML - 10 ML MDV ONE (13:56)
[2019-03-05] MEDS ORDERED: BUPIVACAINE LIPOSOME/PF (EXPAREL) 266 MG/20 ML VIAL ONE (14:00)
[2019-03-05] MEDS ORDERED: BUPIVACAINE LIPOSOME/PF (EXPAREL) 266 MG/20 ML VIAL IJ ONE (14:08)
[2019-03-05] MEDS ORDERED: BUPIVACAINE HCL/PF (5 MG/ML) 30 ML VIAL IJ ONE (14:08)
--- NOTE | 2019-03-05 14:49 | PN ---
Progress Note, Physician Chief Complaint: seen in pacu awake alert - Current Medication List Current Medications: Active Medications Dexamethasone Sodium Phosphate (Decadron Injection -) 4 mg IVPUSH ONCE PRN PRN Reason: NAUSEA AND/OR VOMITING Diphenhydramine HCl (Benadryl -) 25 mg PO Q6H PRN PRN Reason: FOR ITCHING Diphenhydramine HCl (Benadryl Injection -) 12.5 mg IVPUSH ONCE PRN PRN Reason: FOR ITCHING Docusate Sodium (Colace -) 100 mg PO TID [facility] Last Admin: 03/05/19 05:59 Dose: Not Given Duloxetine HCl (Cymbalta -) 60 mg PO DAILY [facility] Last Admin: 03/05/19 10:09 Dose: Not Given Fentanyl (Sublimaze Injection -) 50 mcg IVPUSH [id number] PRN PRN Reason: PAIN-PACU ORDER X 4 DOSES ONLY Ferrous Sulfate (Feosol -) 325 mg PO DAILY@0800 [facility] Last Admin: 03/05/19 07:55 Dose: Not Given Folic Acid (Folic Acid -) 1 mg PO DAILY [facility] Last Admin: 03/05/19 10:09 Dose: Not Given Gabapentin (Neurontin -) 300 mg PO TID [facility] Last Admin: 03/05/19 05:59 Dose: Not Given Heparin Sodium (Porcine) (Heparin -) 5,000 unit SQ TID [facility] Last Admin: 03/05/19 05:59 Dose: Not Given Hydromorphone HCl (Dilaudid Assembly Press Operator -) 10 mg LINEN CONTROLLER LINEN CONTROLLER [facility]; Protocol Stop: 03/06/19 18:12 Last Admin: 03/05/19 01:57 Dose: 10 mg Hydromorphone HCl (Dilaudid Assembly Press Operator -) 10 mg LINEN CONTROLLER LINEN CONTROLLER [facility]; Protocol Stop: 03/12/19 10:54 Cefazolin Sodium (Ancef 1 Gm Premixed Ivpb -) 1 gm in 50 mls @ 100 mls/hr IVPB Q8H [facility] Last Admin: 03/05/19 08:59 Dose: 100 mls/hr Sodium Chloride (Normal Saline -) 1,000 mls @ 125 mls/hr IV ASDIR [facility] Last Admin: 03/04/19 11:57 Dose: 125 mls/hr Lactated Ringer's (Lactated Ringers Solution) 1,000 mls @ 125 mls/hr IV ASDIR [facility] Insulin Aspart (Novolog Vial Sliding Scale -) 1 vial SQ TIDAC [facility]; Protocol Last Admin: 03/05/19 10:10 Dose: Not Given Miscellaneous (Duragesic Patch Waste) 1 each MC PRN PRN PRN Reason: PAIN Morphine Sulfate (Msir -) 15 mg PO Q6H PRN PRN Reason: PAIN LEVEL 6-10 Morphine Sulfate (Ms Contin -) 15 mg PO BID [facility] Last Admin: 03/05/19 10:10 Dose: Not Given Ondansetron HCl (Zofran Injection) 4 mg IVPUSH Q6H PRN PRN Reason: NAUSEA Ondansetron HCl (Zofran Injection) 4 mg IVPUSH Q4H PRN PRN Reason: NAUSEA AND/OR VOMITING Promethazine HCl (Phenergan Injection -) 12.5 mg IVPB Q6H PRN PRN Reason: NAUSEA AND/OR VOMITING Tizanidine HCl (Tizanidine Hcl) 4 mg PO TID [facility] Last Admin: 03/05/19 05:59 Dose: Not Given - Objective Vital Signs: Vital Signs Temperature 98.8 F 03/05/19 09:29 Pulse Rate 85 03/05/19 09:29 Respiratory Rate 18 03/05/19 09:29 Blood Pressure 142/64 03/05/19 09:29 O2 Sat by Pulse Oximetry (%) 95 03/05/19 09:00 Constitutional: Yes: Calm HENT: Yes: Other Neck: Yes: Other (neck collar drain serosanginous discharge) Cardiovascular: Yes: Regular Rate and Rhythm, S1, S2 Respiratory: Yes: CTA Bilaterally Gastrointestinal: Yes: Normal Bowel Sounds, Soft Edema: No Labs: CBC, BMP 03/05/19 07:58 03/05/19 07:58 INR, PTT INR 0.96 (0.83-1.09) 03/02/19 15:21 Problem List - Problems (1) Cervical spondylitis Assessment/Plan: - Note: Operative Date: 03/03/19 Pre-Operative Diagnosis: Cervical Spondylosis and kyphosis Operation: Exploration of spinal fusion with C2-C7 Laminectomies and temple of lordosis with Lateral mass screw instrumentation, Exploration of spinal fusion and removal of anterior plate/hardware. Post-Operative Diagnosis: Same as Pre-op Surgeon: Luc Saavedra Peanut Cleaner: Cierra Murphy Anesthesiologist/BOBCAT DRIVER/LABOR: Jarek Arellano Anesthesia: General, Local Specimens Removed: anterior plate and screws Estimated Blood Loss (mls): 320 Drains & Tubes with Location: JORGE Right paravetebral c-spine Drains, Volume Out (mls): 400 (quintanilla) Fluid Volume Replaced (mls): 1,900 Operative Report Dictated: Yes iv abx pain control - train station agent pump heparin sb q neck collar ct neck pending Code(s): M46.92 - UNSPECIFIED INFLAMMATORY SPONDYLOPATHY, CERVICAL REGION
[2019-03-05] MEDS ORDERED: METOPROLOL TARTRATE 5 MG/5 ML VIAL ONE (14:50)
[2019-03-05] MEDS ORDERED: HYDROmorphone *PCA* 10MG/50ML DISP.SYRIN PCA ONE ×2 (15:07→15:15)
--- NOTE | 2019-03-05 15:42 | OP ---
Operative Note - Note: Operative Date: 03/05/19 Pre-Operative Diagnosis: Cervical osteophyte Operation: Posterior cervical wound exploration & osteotomies, Lateral foraminal deompression Post-Operative Diagnosis: Same as Pre-op Surgeon: Luc Saavedra Master Of Ceremonies: Marc Bowen Anesthesiologist/HULL LINE CREW MEMBER: Hudson Dorsey Anesthesia: General Estimated Blood Loss (mls): 900 Operative Report Dictated: Yes
[2019-03-05] MEDS ORDERED: ACETAMINOPHEN INJECTION 100 ML IVPB ONE (16:57)
[2019-03-05] MEDS ORDERED: ACETAMINOPHEN 1000 MG/100 ML VIAL (NON FORMULARY) IVPB ONE ×2 (17:00)
[2019-03-05] MEDS: SODIUM CHLORIDE 1,000 ML IV SCH (18:33)
[2019-03-05] MEDS ORDERED: diphenhydrAMINE HCL 25 MG CAPSULE (FP) PO PRN (18:34)
[2019-03-05] MEDS: LACTATED RINGERS SOLUTION 1,000 ML IV SCH (21:00)
[2019-03-05] MEDS ORDERED: ZOLPIDEM TARTRATE 5 MG TABLET PO ONE (21:45)
[2019-03-06] MEDS ORDERED: CEFAZOLIN 1 GM/D5W 1 GM/50 ML BAG IVPB SCH
[2019-03-06] MEDS: CEFAZOLIN 1 GM/D5W 1 GM/50 ML BAG IVPB SCH ×3 (00:54→17:15)
[2019-03-06] MEDS: INSULIN SLIDING SCALE (NOVOLOG) 1 VIAL SQ SCH ×3 (06:22→17:16)
[2019-03-06] MEDS: LACTATED RINGERS SOLUTION 1,000 ML IV SCH ×2 (06:26→20:55)
[2019-03-06] MEDS: TIZANIDINE HCL 4 MG TABLET PO SCH ×3 (06:26→21:39)
[2019-03-06] MEDS: DOCUSATE SODIUM 100 MG CAPSULE (FP) PO SCH ×3 (06:26→21:39)
[2019-03-06] MEDS: HEPARIN NA (PORCINE) 5,000 UNITS/ML 1ML VIAL SQ SCH ×3 (06:27→21:39)
[2019-03-06] MEDS: GABAPENTIN 300 MG CAPSULE (FP) PO SCH ×3 (06:27→21:39)
--- NOTE | 2019-03-06 09:26 | PN ---
Progress Note (short form) - Note Progress Note: POD 1, s/p Posterior cervical wound exploration & osteotomies, Lateral foraminal deompression, POD 3, s/p Exploration of spinal fusion with C2-C7 Laminectomies/sikhism of lordosis, Exploration of spinal fusion and removal of anterior plate Pt seen and examined this morning. Pt somnolent and difficult to arouse. Anesthesia contact to d/c SPANISHER. Vital Signs Temp 98.9 F 03/06/19 05:00 Pulse 94 H 03/06/19 05:00 Resp 18 03/06/19 05:00 BP 150/70 03/06/19 05:00 Pulse Ox 98 03/05/19 21:00 Intake & Output 03/05/19 03/06/19 03/06/19 23:59 11:59 23:59 Intake Total 350 Output Total 2870 540 Balance -2520 -540 Intake: IV 250 Oral 100 Output: Drainage 70 40 Right Neck 55 40 Urine 1900 500 Bush 400 500 Estimated Blood Loss 900 Other: Voiding Method Indwelling Catheter Bowel Movement No No CBC, BMP 03/05/19 07:58 03/05/19 07:58 Gen: somnolent, difficult to arouse. Resp: unlabored on RA Back: dressings c/d/i. Drain in place with serous drainage in reservoir, tubing stripped. 55ml JORGE output overnight Neuro: Unable to obtain full exam due to pts state. Follows commands, moves b/l UE/LE easily, lifts extremities off bed. 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 Oversedated, anesthesia contacted immediately for d/c SPANISHER and new pain regimen. Afebrile, VSS. -Pain control per anesthesia -Keep drain in place, monitor and record output (changed to Bile bag this afternoon around 1500) -Continue Anceg 1g q8hrs while drain is in place -PT -Continue c-collar 23 hours day -Continue DVT prophylaxis with b/l scds, and SQ heparin d/w attending Dr Guerin
[2019-03-06] MEDS: FOLIC ACID 1 MG TABLET (FP) PO SCH (09:52)
[2019-03-06] MEDS: FERROUS SO4 325 MG TABLET (FP) PO SCH (09:52)
[2019-03-06] MEDS: DULoxetine HCL 30 MG CAPSULE.DR (FP) PO SCH (09:56)
--- NOTE | 2019-03-06 10:59 | PN ---
Progress Note (short form) - Note Progress Note: 68M POD1 s/p C3-7 ostrotomy and foraminotomy under GA-ETT with dilaudid IV ADMINISTRATIVE LAW JUDGE. Pt extremely somnolent, and difficult to arouse. In the interest of patient's safety, d/c ADMINISTRATIVE LAW JUDGE today. Start IV tylenol. Consider oral narcotic for breakthrough pain when patient is more arousable.
[2019-03-06] MEDS ORDERED: fentaNYL 50mcg/hr PATCH.TD72 TD SCH (11:30)
[2019-03-06] MEDS: ACETAMINOPHEN 1000 MG/100 ML VIAL (NON FORMULARY) IVPB SCH ×3 (11:37→22:10)
[2019-03-06] MEDS ORDERED: INSULIN (NOVOLOG) ASPART 100 UNITS/ML 10ML VIAL ONE (12:10)
--- NOTE | 2019-03-06 13:25 | PN ---
Progress Note, Physician Chief Complaint: patient seen and examiend sleeping - Current Medication List Current Medications: Active Medications Acetaminophen (Ofirmev Injection -) 1,000 mg IVPB Q6H [facility] Stop: 03/07/19 05:01 Last Admin: 03/06/19 11:37 Dose: 1,000 mg Diphenhydramine HCl (Benadryl -) 25 mg PO Q6H PRN PRN Reason: FOR ITCHING Docusate Sodium (Colace -) 100 mg PO TID [facility] Last Admin: 03/06/19 06:26 Dose: 100 mg Duloxetine HCl (Cymbalta -) 60 mg PO DAILY [facility] Last Admin: 03/06/19 09:56 Dose: 60 mg Ferrous Sulfate (Feosol -) 325 mg PO DAILY@0800 [facility] Last Admin: 03/06/19 09:52 Dose: 325 mg Folic Acid (Folic Acid -) 1 mg PO DAILY [facility] Last Admin: 03/06/19 09:52 Dose: 1 mg Gabapentin (Neurontin -) 300 mg PO TID [facility] Last Admin: 03/06/19 06:27 Dose: 300 mg Heparin Sodium (Porcine) (Heparin -) 5,000 unit SQ TID [facility] Last Admin: 03/06/19 06:27 Dose: 5,000 unit Lactated Ringer's (Lactated Ringers Solution) 1,000 mls @ 125 mls/hr IV ASDIR [facility] Last Admin: 03/06/19 06:26 Dose: 125 mls/hr Cefazolin Sodium (Ancef 1 Gm Premixed Ivpb -) 1 gm in 50 mls @ 100 mls/hr IVPB Q8H-IV [facility] Last Admin: 03/06/19 09:52 Dose: 100 mls/hr Insulin Aspart (Novolog Vial Sliding Scale -) 1 vial SQ TIDAC [facility]; Protocol Last Admin: 03/06/19 12:14 Dose: 4 units Ondansetron HCl (Zofran Injection) 4 mg IVPUSH Q6H PRN PRN Reason: NAUSEA Tizanidine HCl (Tizanidine Hcl) 4 mg PO TID [facility] Last Admin: 03/06/19 06:26 Dose: 4 mg - Objective Vital Signs: Vital Signs Temperature 98.9 F 03/06/19 05:00 Pulse Rate 94 H 03/06/19 05:00 Respiratory Rate 18 03/06/19 05:00 Blood Pressure 150/70 03/06/19 05:00 O2 Sat by Pulse Oximetry (%) 98 03/05/19 21:00 Constitutional: Yes: Calm Neck: Yes: Other (neck colar with drain serosanginous discharge) Cardiovascular: Yes: Regular Rate and Rhythm, S1, S2 Respiratory: Yes: CTA Bilaterally Gastrointestinal: Yes: Normal Bowel Sounds, Soft Edema: No Labs: CBC, BMP 03/05/19 07:58 03/05/19 07:58 INR, PTT INR 0.96 (0.83-1.09) 03/02/19 15:21 Problem List - Problems (1) Cervical spondylitis Assessment/Plan: - Note: Operative Date: 03/03/19 Pre-Operative Diagnosis: Cervical Spondylosis and kyphosis Operation: Exploration of spinal fusion with C2-C7 Laminectomies and sikh of lordosis with Lateral mass screw instrumentation, Exploration of spinal fusion and removal of anterior plate/hardware. Post-Operative Diagnosis: Same as Pre-op Surgeon: Luc Saavedra Armor Officer: Cierra Murphy Anesthesiologist/LEISURE STUDIES PROFESSOR: Jarek Arellano Anesthesia: General, Local Specimens Removed: anterior plate and screws Estimated Blood Loss (mls): 320 Drains & Tubes with Location: JORGE Right paravetebral c-spine Drains, Volume Out (mls): 400 (quintanilla) Fluid Volume Replaced (mls): 1,900 Operative Report Dictated: Yes iv abx pain control - solderer furnace pump stop today heparin sb q neck collar and drain noted ct neck noted Code(s): M46.92 - UNSPECIFIED INFLAMMATORY SPONDYLOPATHY, CERVICAL REGION
[2019-03-06] MEDS ORDERED: PT OWN MED DRAWER 7, Y5N ONE ×2 (13:32→21:15)
[2019-03-07] MEDS: CEFAZOLIN 1 GM/D5W 1 GM/50 ML BAG IVPB SCH ×3 (02:57→17:16)
[2019-03-07] MEDS: LACTATED RINGERS SOLUTION 1,000 ML IV SCH ×2 (06:23→14:59)
[2019-03-07] MEDS: ACETAMINOPHEN 1000 MG/100 ML VIAL (NON FORMULARY) IVPB SCH (06:26)
[2019-03-07] MEDS: DOCUSATE SODIUM 100 MG CAPSULE (FP) PO SCH ×3 (06:26→22:24)
[2019-03-07] MEDS: GABAPENTIN 300 MG CAPSULE (FP) PO SCH ×4 (06:26→22:25)
[2019-03-07] MEDS: HEPARIN NA (PORCINE) 5,000 UNITS/ML 1ML VIAL SQ SCH ×3 (06:26→22:25)
[2019-03-07] MEDS: TIZANIDINE HCL 4 MG TABLET PO SCH ×3 (06:27→22:26)
[2019-03-07] MEDS: INSULIN SLIDING SCALE (NOVOLOG) 1 VIAL SQ SCH ×3 (06:27→17:16)
[2019-03-07 08:24] LABS: BASO % 0.7 % (0-2.0); EOS % 4.9 % (0-4.5); HEMATOCRIT 24.4 % (35.4-49); HEMOGLOBIN 8.6 GM/dL (11.7-16.9); LYMPH % 16.4 % (8-40); MCH 31.4 pg (25.7-33.7); MCHC 35.2 g/dl (32.0-35.9); MEAN CELL VOLUME 89.1 fl (80-96); MONO % 8.7 % (3.8-10.2); NEUT % 69.3 % (42.8-82.8); PLATELET COUNT 127 K/MM3 (134-434); RBC 2.74 M/mm3 (4.00-5.60); RDW 12.2 % (11.9-15.9); WHITE BLOOD COUNT 6.6 K/mm3 (4.0-10.0)
[2019-03-07 08:29] LABS: ALBUMIN 2.3 g/dl (3.4-5.0); ALK PHOS 45 U/L (45-117); ANION GAP 7 MMOL/L (8-16); BLOOD UREA NITROGEN 11 mg/dL (7-18); CALCIUM 7.5 mg/dL (8.5-10.1); CHLORIDE 101 mmol/L (98-107); CO2 29 mmol/L (21-32); CREATININE 0.5 mg/dL (0.55-1.3); GLUCOSE,RANDOM 219 mg/dL (74-106); POTASSIUM 3.9 mmol/L (3.5-5.1); SGOT/AST 29 U/L (15-37); SGPT/ALT 23 U/L (13-61); SODIUM 137 mmol/L (136-145); TOT PROT 4.8 g/dl (6.4-8.2)
[2019-03-07] MEDS: FERROUS SO4 325 MG TABLET (FP) PO SCH (08:45)
[2019-03-07] MEDS: DULoxetine HCL 30 MG CAPSULE.DR (FP) PO SCH (11:00)
[2019-03-07] MEDS: FOLIC ACID 1 MG TABLET (FP) PO SCH (11:01)
[2019-03-07] MEDS ORDERED: PT OWN MED DRAWER 7, Y5N ONE ×2 (13:23→22:23)
[2019-03-07] MEDS ORDERED: FENTANYL PATCH WASTE MC PRN (14:15)
[2019-03-07] MEDS ORDERED: traMADol HCL 50 MG TABLET PO SCH (14:15)
--- NOTE | 2019-03-07 14:19 | PN ---
Progress Note, Physician - Current Medication List Current Medications: Active Medications Diphenhydramine HCl (Benadryl -) 25 mg PO Q6H PRN PRN Reason: FOR ITCHING Docusate Sodium (Colace -) 100 mg PO TID [facility] Last Admin: 03/07/19 13:27 Dose: 100 mg Duloxetine HCl (Cymbalta -) 60 mg PO DAILY [facility] Last Admin: 03/07/19 11:00 Dose: 60 mg Fentanyl (Duragesic 50mcg Patch -) 1 patch TD Q72H [facility] Stop: 03/14/19 14:15 Ferrous Sulfate (Feosol -) 325 mg PO DAILY@0800 [facility] Last Admin: 03/07/19 08:45 Dose: 325 mg Folic Acid (Folic Acid -) 1 mg PO DAILY [facility] Last Admin: 03/07/19 11:01 Dose: 1 mg Gabapentin (Neurontin -) 300 mg PO QID [facility] Heparin Sodium (Porcine) (Heparin -) 5,000 unit SQ TID [facility] Last Admin: 03/07/19 13:46 Dose: 5,000 unit Lactated Ringer's (Lactated Ringers Solution) 1,000 mls @ 125 mls/hr IV ASDIR [facility] Last Admin: 03/07/19 06:23 Dose: 125 mls/hr Cefazolin Sodium (Ancef 1 Gm Premixed Ivpb -) 1 gm in 50 mls @ 100 mls/hr IVPB Q8H-IV [facility] Last Admin: 03/07/19 11:00 Dose: 100 mls/hr Insulin Aspart (Novolog Vial Sliding Scale -) 1 vial SQ TIDAC [facility]; Protocol Last Admin: 03/07/19 11:49 Dose: 6 units Miscellaneous (Duragesic Patch Waste) 1 each MC PRN PRN PRN Reason: PAIN Ondansetron HCl (Zofran Injection) 4 mg IVPUSH Q6H PRN PRN Reason: NAUSEA Tizanidine HCl (Tizanidine Hcl) 4 mg PO TID [facility] Last Admin: 03/07/19 13:28 Dose: 4 mg Tramadol HCl (Ultram -) 50 mg PO Q6H [facility] - Objective Vital Signs: Vital Signs Temperature 99.0 F 03/07/19 08:00 Pulse Rate 68 03/07/19 08:00 Respiratory Rate 19 03/07/19 08:00 Blood Pressure 117/57 L 04/06/19 08:00 O2 Sat by Pulse Oximetry (%) 98 03/05/19 21:00 Labs: CBC, BMP 03/07/19 07:00 03/07/19 07:00 INR, PTT INR 0.96 (0.83-1.09) 03/02/19 15:21 Problem List - Problems (1) Cervical spondylitis Assessment/Plan: - Problems (1) Cervical spondylitis Assessment/Plan: - Note: Operative Date: 03/03/19 Pre-Operative Diagnosis: Cervical Spondylosis and kyphosis Operation: Exploration of spinal fusion with C2-C7 Laminectomies and mormonism of lordosis with Lateral mass screw instrumentation, Exploration of spinal fusion and removal of anterior plate/hardware. Post-Operative Diagnosis: Same as Pre-op Surgeon: Luc Saavedra Wire Transfer Clerk: Cierra Murphy Anesthesiologist/DOCUMENTATION ANALYST: Jarek Arellano Anesthesia: General, Local Specimens Removed: anterior plate and screws Estimated Blood Loss (mls): 320 Drains & Tubes with Location: JORGE Right paravetebral c-spine Drains, Volume Out (mls): 400 (quintanilla) Fluid Volume Replaced (mls): 1,900 Operative Report Dictated: Yes iv abx pain control - electronic gluer pump stopped--start duragesic patch and tramadol heparin sb q neck collar and drain noted Code(s): M46.92 - UNSPECIFIED INFLAMMATORY SPONDYLOPATHY, CERVICAL REGION Code(s): M46.92 - UNSPECIFIED INFLAMMATORY SPONDYLOPATHY, CERVICAL REGION (2) HTN (hypertension) Assessment/Plan: monitor Code(s): I10 - ESSENTIAL (PRIMARY) HYPERTENSION (3) IDDM (insulin dependent diabetes mellitus) Assessment/Plan: a1c 6.4 resume metformin Code(s): E11.9 - TYPE 2 DIABETES MELLITUS WITHOUT COMPLICATIONS; Z79.4 - FOREST RESOURCE SPECIALIST (CURRENT) USE OF INSULIN (4) Anemia Assessment/Plan: postop follow counts Code(s): D64.9 - ANEMIA, UNSPECIFIED
[2019-03-07] MEDS: fentaNYL 50mcg/hr PATCH.TD72 TD SCH (14:53)
[2019-03-07] MEDS: metFORMIN HCL 500 MG TABLET (FP) PO SCH (16:34)
[2019-03-07] MEDS: traMADol HCL 50 MG TABLET PO SCH (17:50)
[2019-03-07] MEDS: PANTOPRAZOLE SODIUM 40 MG VIAL IVPUSH SCH (22:25)
[2019-03-08] MEDS: CEFAZOLIN 1 GM/D5W 1 GM/50 ML BAG IVPB SCH ×4 (01:50→19:46)
[2019-03-08] MEDS: traMADol HCL 50 MG TABLET PO SCH ×5 (06:56→23:41)
[2019-03-08] MEDS: DOCUSATE SODIUM 100 MG CAPSULE (FP) PO SCH ×2 (06:56→13:51)
[2019-03-08] MEDS: TIZANIDINE HCL 4 MG TABLET PO SCH ×3 (06:57→21:26)
[2019-03-08] MEDS: HEPARIN NA (PORCINE) 5,000 UNITS/ML 1ML VIAL SQ SCH ×3 (06:59→21:27)
[2019-03-08] MEDS: metFORMIN HCL 500 MG TABLET (FP) PO SCH ×2 (07:03→16:17)
[2019-03-08] MEDS: INSULIN SLIDING SCALE (NOVOLOG) 1 VIAL SQ SCH ×3 (07:04→16:16)
[2019-03-08] MEDS ORDERED: INSULIN (NOVOLOG) ASPART 100 UNITS/ML 10ML VIAL ONE ×2 (07:13→11:00)
[2019-03-08 07:58] LABS: BASO % 0.6 % (0-2.0); EOS % 3.4 % (0-4.5); HEMATOCRIT 29.4 % (35.4-49); HEMOGLOBIN 10.3 GM/dL (11.7-16.9); LYMPH % 13.6 % (8-40); MCH 31.1 pg (25.7-33.7); MCHC 35.1 g/dl (32.0-35.9); MEAN CELL VOLUME 88.9 fl (80-96); MEAN PLT VOLUME 8.6 fl (7.5-11.1); MONO % 8.7 % (3.8-10.2); NEUT % 73.7 % (42.8-82.8); PLATELET COUNT 179 K/MM3 (134-434); RBC 3.31 M/mm3 (4.00-5.60); RDW 12.7 % (11.9-15.9); WHITE BLOOD COUNT 7.2 K/mm3 (4.0-10.0)
[2019-03-08] MEDS: FERROUS SO4 325 MG TABLET (FP) PO SCH (08:06)
[2019-03-08 08:29] LABS: ALBUMIN 2.5 g/dl (3.4-5.0); ALK PHOS 53 U/L (45-117); ANION GAP 8 MMOL/L (8-16); BILIRUBIN,TOTAL 0.7 mg/dL (0.2-1); BLOOD UREA NITROGEN 7 mg/dL (7-18); CALCIUM 7.9 mg/dL (8.5-10.1); CHLORIDE 98 mmol/L (98-107); CO2 27 mmol/L (21-32); CREATININE 0.4 mg/dL (0.55-1.3); GLUCOSE,RANDOM 172 mg/dL (74-106); POTASSIUM 3.3 mmol/L (3.5-5.1); SGOT/AST 23 U/L (15-37); SGPT/ALT 27 U/L (13-61); SODIUM 134 mmol/L (136-145); TOT PROT 5.4 g/dl (6.4-8.2)
[2019-03-08] MEDS ORDERED: PT OWN MED DRAWER 7, Y5N ONE ×2 (10:15→10:59)
[2019-03-08] MEDS: GABAPENTIN 300 MG CAPSULE (FP) PO SCH ×4 (10:19→21:27)
[2019-03-08] MEDS: DULoxetine HCL 30 MG CAPSULE.DR (FP) PO SCH (10:19)
[2019-03-08] MEDS: PANTOPRAZOLE SODIUM 40 MG VIAL IVPUSH SCH ×2 (10:19→21:27)
[2019-03-08] MEDS: FOLIC ACID 1 MG TABLET (FP) PO SCH (10:20)
--- NOTE | 2019-03-08 14:28 | PN ---
Progress Note, Physician History of Present Illness: intermittent chest tightness sob - Current Medication List Current Medications: Active Medications Diphenhydramine HCl (Benadryl -) 25 mg PO Q6H PRN PRN Reason: FOR ITCHING Docusate Sodium (Colace -) 100 mg PO TID [facility] Last Admin: 03/08/19 13:51 Dose: 100 mg Duloxetine HCl (Cymbalta -) 60 mg PO DAILY [facility] Last Admin: 03/08/19 10:19 Dose: 60 mg Fentanyl (Duragesic 50mcg Patch -) 1 patch TD Q72H [facility] Stop: 03/14/19 14:15 Last Admin: 03/07/19 14:53 Dose: 1 patch Ferrous Sulfate (Feosol -) 325 mg PO DAILY@0800 [facility] Last Admin: 03/08/19 08:06 Dose: 325 mg Folic Acid (Folic Acid -) 1 mg PO DAILY [facility] Last Admin: 03/08/19 10:20 Dose: 1 mg Gabapentin (Neurontin -) 300 mg PO QID [facility] Last Admin: 03/08/19 13:51 Dose: 300 mg Heparin Sodium (Porcine) (Heparin -) 5,000 unit SQ TID [facility] Last Admin: 03/08/19 13:50 Dose: 5,000 unit Cefazolin Sodium (Ancef 1 Gm Premixed Ivpb -) 1 gm in 50 mls @ 100 mls/hr IVPB Q8H-IV [facility] Last Admin: 03/08/19 10:20 Dose: 100 mls/hr Insulin Aspart (Novolog Vial Sliding Scale -) 1 vial SQ TIDAC [facility]; Protocol Last Admin: 03/08/19 11:12 Dose: 2 units Metformin HCl (Glucophage -) 500 mg PO BID@0700,1630 [facility] Last Admin: 03/08/19 07:03 Dose: 500 mg Miscellaneous (Duragesic Patch Waste) 1 each MC PRN PRN PRN Reason: PAIN Ondansetron HCl (Zofran Injection) 4 mg IVPUSH Q6H PRN PRN Reason: NAUSEA Pantoprazole Sodium (Protonix Iv) 40 mg IVPUSH BID [facility] Last Admin: 03/08/19 10:19 Dose: 40 mg Tizanidine HCl (Tizanidine Hcl) 4 mg PO TID [facility] Last Admin: 03/08/19 13:51 Dose: 4 mg Tramadol HCl (Ultram -) 50 mg PO Q6HPO [facility] Last Admin: 03/08/19 11:42 Dose: 50 mg - Objective Vital Signs: Vital Signs Temperature 99.5 F 03/08/19 06:00 Pulse Rate 98 H 03/08/19 06:00 Respiratory Rate 20 03/08/19 06:00 Blood Pressure 154/75 03/08/19 06:00 O2 Sat by Pulse Oximetry (%) 94 L 03/07/19 21:00 Cardiovascular: Yes: Regular Rate and Rhythm Respiratory: Yes: Regular, CTA Bilaterally Gastrointestinal: Yes: Normal Bowel Sounds, Soft Labs: CBC, BMP 03/08/19 06:45 03/08/19 06:45 INR, PTT INR 0.96 (0.83-1.09) 03/02/19 15:21 Problem List - Problems (1) Cervical spondylitis Assessment/Plan: - Problems (1) Cervical spondylitis Assessment/Plan: - Note: Operative Date: 03/03/19 Pre-Operative Diagnosis: Cervical Spondylosis and kyphosis Operation: Exploration of spinal fusion with C2-C7 Laminectomies and hinduism of lordosis with Lateral mass screw instrumentation, Exploration of spinal fusion and removal of anterior plate/hardware. Post-Operative Diagnosis: Same as Pre-op Surgeon: Luc Saavedra Dial Printer: Cierra Murphy Anesthesiologist/RN POST PARTUM: Jarek Arellano Anesthesia: General, Local Specimens Removed: anterior plate and screws Estimated Blood Loss (mls): 320 Drains & Tubes with Location: JORGE Right paravetebral c-spine Drains, Volume Out (mls): 400 (quintanilla) Fluid Volume Replaced (mls): 1,900 Operative Report Dictated: Yes iv abx pain control - aerospace stress engineer pump stopped--start duragesic patch and tramadol heparin sb q neck collar and drain noted Code(s): M46.92 - UNSPECIFIED INFLAMMATORY SPONDYLOPATHY, CERVICAL REGION Code(s): M46.92 - UNSPECIFIED INFLAMMATORY SPONDYLOPATHY, CERVICAL REGION (2) HTN (hypertension) Assessment/Plan: monitor Code(s): I10 - ESSENTIAL (PRIMARY) HYPERTENSION (3) IDDM (insulin dependent diabetes mellitus) Assessment/Plan: a1c 6.4 resume metformin Code(s): E11.9 - TYPE 2 DIABETES MELLITUS WITHOUT COMPLICATIONS; Z79.4 - MANA[employer] (CURRENT) USE OF INSULIN (4) Anemia Assessment/Plan: postop follow counts Code(s): D64.9 - ANEMIA, UNSPECIFIED (5) Chest pain Assessment/Plan: EKG/CE CXR Code(s): R07.9 - CHEST PAIN, UNSPECIFIED
--- NOTE | 2019-03-08 17:51 | EKG ---
Test Reason : Blood Pressure : / mmHG Vent. Rate : 077 BPM Atrial Rate : 077 BPM P-R Int : 198 ms QRS Dur : 094 ms QT Int : 396 ms P-R-T Axes : 113 008 043 degrees QTc Int : 448 ms NORMAL SINUS RHYTHM NORMAL ECG WHEN COMPARED WITH ECG OF 02-MAR-2019 16:07, NO SIGNIFICANT CHANGE WAS FOUND Confirmed by EDWIN PATTERSON MD ([id number]) on 03/08/2019 5:51:04 PM Referred By: Anirudh KERR Confirmed By:EDWIN PATTERSON MD
[2019-03-08] MEDS ORDERED: ACETAMINOPHEN 1000 MG/100 ML VIAL (NON FORMULARY) IVPB ONE (18:09)
[2019-03-08] MEDS ORDERED: traMADol HCL 50 MG TABLET PO ONE (18:09)
[2019-03-08] MEDS ORDERED: ZOLPIDEM TARTRATE 5 MG TABLET PO ONE (22:23)
--- NOTE | 2019-03-08 23:37 | HOSP ---
Subjective - Review of Symptoms Events since last encounter: advised to see patient bc his bp is running high and he has difficulty sleeping His initial bp was 177/88 and repeat in one hour is down to 160/80 Vital Signs Period Temp Pulse Resp BP Sys/Edmonds Pulse Ox Last 24 Hr 98.5 F-99.5 F 77-98 18-20 149-170/75-88 94-96 he is c/o that he takes ambien at night in home rest of exam is ok ap INsomnia start on ambien 5 prn hs htn no need for meds bc is trending down Physical Examination Vital Signs: Vital Signs Temperature 98.6 F 03/08/19 22:00 Pulse Rate 79 03/08/19 22:00 Respiratory Rate 18 03/08/19 22:00 Blood Pressure 161/86 03/08/19 22:00 O2 Sat by Pulse Oximetry (%) 94 L 03/08/19 21:00 Labs: CBC, BMP 03/08/19 06:45 03/08/19 06:45
[2019-03-09] MEDS: CEFAZOLIN 1 GM/D5W 1 GM/50 ML BAG IVPB SCH ×3 (01:45→17:52)
[2019-03-09] MEDS ORDERED: LISINOPRIL 10 MG TABLET (FP) PO ONE (05:36)
--- NOTE | 2019-03-09 05:44 | HOSP ---
Subjective - Review of Symptoms Events since last encounter: Patient's BP has remained high. He has not been on antihypertensives at home as he was not previously diagnosed with HTN. Physical Examination Vital Signs: Vital Signs Temperature 98.6 F 03/08/19 22:00 Pulse Rate 79 03/08/19 22:00 Respiratory Rate 18 03/09/19 01:58 Blood Pressure 189/88 H 03/09/19 01:58 O2 Sat by Pulse Oximetry (%) 94 L 03/08/19 21:00 Labs: CBC, BMP 03/08/19 06:45 03/08/19 06:45 Hospitalist Encounter Assessment: Hypertension Recommendations/Interventions: As patient also has diabetes, will start lisinopril and continue to monitor BP.
[2019-03-09] MEDS: traMADol HCL 50 MG TABLET PO SCH ×2 (05:51→11:59)
[2019-03-09] MEDS: HEPARIN NA (PORCINE) 5,000 UNITS/ML 1ML VIAL SQ SCH ×3 (05:52→21:17)
[2019-03-09] MEDS: TIZANIDINE HCL 4 MG TABLET PO SCH ×3 (05:53→21:18)
[2019-03-09] MEDS: metFORMIN HCL 500 MG TABLET (FP) PO SCH ×2 (06:22→16:19)
[2019-03-09] MEDS: INSULIN SLIDING SCALE (NOVOLOG) 1 VIAL SQ SCH ×3 (06:24→16:20)
--- NOTE | 2019-03-09 07:56 | PN ---
Progress Note (short form) - Note Progress Note: Surgery POD #6 Exploration of spinal fusion with C2-C7 Laminectomies and religious of lordosis with Lateral mass screw instrumentation, Exploration of spinal, with Revision on 03/05/19. Patient seen and examined at bedside states pain continues to improve, although he still has a lot of pain over his shoulders. Patient had some issues with hypertension over the weekend which is now being managed by the medical team. He has been getting up at the bedside and tolerating his diet and denies any CP, N/V/D, fever or chills. Vital Signs Temp 98.9 F 03/09/19 06:00 Pulse 93 H 03/09/19 06:00 Resp 18 03/09/19 06:00 BP 186/93 H 03/09/19 06:00 Pulse Ox 94 L 03/08/19 21:00 Intake & Output 03/08/19 03/08/19 03/09/19 11:59 23:59 11:59 Intake Total 200 1050 300 Output Total 2790 4150 1410 Balance -2590 -3100 -1110 Intake: IVPB 250 Oral 200 800 300 Output: Drainage 40 50 10 Right Neck 40 50 10 Urine 2750 4100 1400 Bush 2750 950 Void 3150 1400 Other: Voiding Method Urinal Urinal Bowel Movement Yes: large Yes: LARGE LOOSE BOWEL M. No # Bowel Movements 3 1 CBC, BMP 03/08/19 06:45 03/08/19 06:45 PE: A&Ox3, NAD Unlabored resp on RA Neck: Anterior dressing C/D/I with surrounding tissue intact, no edema with no evidence to tracking erythema, no evidence of active d/c. Trachea midline with no deviation. Posterior incision C/D/I with surrounding tissue intact, mild edema and ecchymosis over b/l trapezius' with no evidence to tracking erythema, no evidence of active d/c. Drain in good position with Doug bloody d/c- 60cc/ 24hrs. B/L US 5/5 voice and data technician strength, with sensation to light touch intact throughout. B/L LE Compartments soft, supple and non-tender to palpation, feet warm and well perfused with + dp pulses. Problem List - Problems (1) Status post cervical spinal fusion Assessment/Plan: POD #6 cervical laminectomy/ deocompression and fusion with anterior JOSE FRANCISCO, and revision on 03/05. Patient doing well with pain now controlled. 1) pain mngt per Dr Liriano 2) Continue c-collar 23 hours day- wash collar pads as instructed as they are saturated with sweat. 3) OOB to chair as tolerated with PT 4) Continue DVT prophylaxis with b/l scds, and SQ heparin 5) elevated D-Dimer, b/l LE duplex/doppler to R/O DVT 6) Medical team to manage BP 7) d/c planning, surgical team will pull drain upon d/c. Evaluation and plan discussed with Dr Saavedra Code(s): Z98.1 - ARTHRODESIS STATUS
[2019-03-09] MEDS: FERROUS SO4 325 MG TABLET (FP) PO SCH (08:06)
[2019-03-09] MEDS: FOLIC ACID 1 MG TABLET (FP) PO SCH (09:23)
[2019-03-09] MEDS: DULoxetine HCL 30 MG CAPSULE.DR (FP) PO SCH (09:23)
[2019-03-09] MEDS: GABAPENTIN 300 MG CAPSULE (FP) PO SCH ×4 (09:23→21:18)
[2019-03-09] MEDS: PANTOPRAZOLE SODIUM 40 MG VIAL IVPUSH SCH ×2 (09:25→21:19)
[2019-03-09 11:16] LABS: BASO % 0.7 % (0-2.0); EOS % 2.1 % (0-4.5); HEMATOCRIT 39.4 % (35.4-49); HEMOGLOBIN 13.8 GM/dL (11.7-16.9); LYMPH % 7.8 % (8-40); MCH 31.3 pg (25.7-33.7); MCHC 34.9 g/dl (32.0-35.9); MEAN CELL VOLUME 89.6 fl (80-96); MEAN PLT VOLUME 8.2 fl (7.5-11.1); MONO % 7.7 % (3.8-10.2); NEUT % 81.7 % (42.8-82.8); PLATELET COUNT 277 K/MM3 (134-434); RDW 13.2 % (11.9-15.9); WHITE BLOOD COUNT 12.2 K/mm3 (4.0-10.0)
--- NOTE | 2019-03-09 11:21 | PN ---
Progress Note, Physician Chief Complaint: patient seen and examined complainig of shuolder pain , has a panic attack earlier today overnight events noted elevated D- dimer doppler of legs pending repeat BP 170 systolic got lisinopril earlier in Day - Current Medication List Current Medications: Active Medications Alprazolam (Xanax -) 0.25 mg PO ONCE ONE Stop: 03/09/19 11:14 Amlodipine Besylate (Norvasc -) 10 mg PO ONCE ONE Stop: 03/09/19 11:14 Diphenhydramine HCl (Benadryl -) 25 mg PO Q6H PRN PRN Reason: FOR ITCHING Duloxetine HCl (Cymbalta -) 60 mg PO DAILY [facility] Last Admin: 03/09/19 09:23 Dose: 60 mg Fentanyl (Duragesic 50mcg Patch -) 1 patch TD Q72H [facility] Stop: 03/14/19 14:15 Last Admin: 03/07/19 14:53 Dose: 1 patch Ferrous Sulfate (Feosol -) 325 mg PO DAILY@0800 [facility] Last Admin: 03/09/19 08:06 Dose: 325 mg Folic Acid (Folic Acid -) 1 mg PO DAILY [facility] Last Admin: 03/09/19 09:23 Dose: 1 mg Gabapentin (Neurontin -) 300 mg PO QID [facility] Last Admin: 03/09/19 09:23 Dose: 300 mg Heparin Sodium (Porcine) (Heparin -) 5,000 unit SQ TID [facility] Last Admin: 03/09/19 05:52 Dose: 5,000 unit Cefazolin Sodium (Ancef 1 Gm Premixed Ivpb -) 1 gm in 50 mls @ 100 mls/hr IVPB Q8H-IV [facility] Last Admin: 03/09/19 09:21 Dose: 100 mls/hr Insulin Aspart (Novolog Vial Sliding Scale -) 1 vial SQ TIDAC [facility]; Protocol Last Admin: 03/09/19 06:24 Dose: 2 units Lisinopril (Prinivil) 10 mg PO DAILY [facility] Metformin HCl (Glucophage -) 500 mg PO BID@0700,1630 [facility] Last Admin: 03/09/19 06:22 Dose: 500 mg Miscellaneous (Duragesic Patch Waste) 1 each MC PRN PRN PRN Reason: PAIN Ondansetron HCl (Zofran Injection) 4 mg IVPUSH Q6H PRN PRN Reason: NAUSEA Pantoprazole Sodium (Protonix Iv) 40 mg IVPUSH BID [facility] Last Admin: 03/09/19 09:25 Dose: 40 mg Tizanidine HCl (Tizanidine Hcl) 4 mg PO TID [facility] Last Admin: 03/09/19 05:53 Dose: 4 mg Tramadol HCl (Ultram -) 50 mg PO Q6HPO [facility] Last Admin: 03/09/19 05:51 Dose: 50 mg - Objective Vital Signs: Vital Signs Temperature 98.9 F 03/09/19 06:00 Pulse Rate 93 H 03/09/19 06:00 Respiratory Rate 18 03/09/19 06:00 Blood Pressure 186/93 H 03/09/19 06:00 O2 Sat by Pulse Oximetry (%) 94 L 03/08/19 21:00 Constitutional: Yes: Anxious Neck: Yes: Other (neck line insion antierioryly posterio encchymosis and drain) Cardiovascular: Yes: Regular Rate and Rhythm, S1, S2 Respiratory: Yes: CTA Bilaterally Gastrointestinal: Yes: Normal Bowel Sounds, Soft Edema: No Neurological: Yes: Alert, Oriented Labs: INR, PTT INR 0.96 (0.83-1.09) 03/02/19 15:21 Problem List - Problems (1) Cervical spondylitis Assessment/Plan: - Note: Operative Date: 03/03/19 Pre-Operative Diagnosis: Cervical Spondylosis and kyphosis Operation: Exploration of spinal fusion with C2-C7 Laminectomies and religious of lordosis with Lateral mass screw instrumentation, Exploration of spinal fusion and removal of anterior plate/hardware. Post-Operative Diagnosis: Same as Pre-op Surgeon: Luc Saavedra Consulting Networking Engineer: Cierra Murphy Anesthesiologist/STOCK SAW OPERATOR: Jarek Arellano Anesthesia: General, Local Specimens Removed: anterior plate and screws Estimated Blood Loss (mls): 320 Drains & Tubes with Location: JORGE Right paravetebral c-spine Drains, Volume Out (mls): 400 (quintanilla) Fluid Volume Replaced (mls): 1,900 Operative Report Dictated: Yes iv abx fentanyl and tramadol heparin sb q neck collar and drain noted ct neck noted Code(s): M46.92 - UNSPECIFIED INFLAMMATORY SPONDYLOPATHY, CERVICAL REGION (2) HTN (hypertension) Assessment/Plan: lisinopril norvasc sinus tachycardia maybe anxiety and pain related caridac enzymes ordered patient recently had a stress test and echo in this admission prior to surgery cardiology follow up today Code(s): I10 - ESSENTIAL (PRIMARY) HYPERTENSION (3) Anxiety Assessment/Plan: sinus tacycardia on ekg xanax one time Code(s): F41.9 - ANXIETY DISORDER, UNSPECIFIED
[2019-03-09] MEDS ORDERED: INSULIN (NOVOLOG) ASPART 100 UNITS/ML 10ML VIAL ONE (11:22)
[2019-03-09 11:37] LABS: ALK PHOS 69 U/L (45-117); ANION GAP 14 MMOL/L (8-16); BILIRUBIN,TOTAL 0.8 mg/dL (0.2-1); BLOOD UREA NITROGEN 8 mg/dL (7-18); CALCIUM 8.8 mg/dL (8.5-10.1); CHLORIDE 94 mmol/L (98-107); CO2 24 mmol/L (21-32); CREATININE 0.4 mg/dL (0.55-1.3); GLUCOSE,RANDOM 210 mg/dL (74-106); POTASSIUM 3.4 mmol/L (3.5-5.1); SGOT/AST 38 U/L (15-37); SGPT/ALT 40 U/L (13-61); SODIUM 132 mmol/L (136-145); TOT PROT 6.5 g/dl (6.4-8.2)
[2019-03-09] MEDS ORDERED: amLODIPine BESYLATE 10 MG TABLET (FP) PO ONE (11:45)
[2019-03-09] MEDS ORDERED: ALPRAZolam 0.25 MG TABLET PO ONE (11:45)
[2019-03-09] MEDS ORDERED: PT OWN MED DRAWER 7, Y5N ONE ×2 (13:20→20:48)
[2019-03-09] MEDS: morphine SULFATE IMMEDIATE RELEASE 30 MG TAB PO PRN ×3 (13:28→21:18)
[2019-03-09] MEDS ORDERED: POTASSIUM CHLORIDE TABS 20 MEQ TABLET.ER (FP) PO ONE (14:15)
--- NOTE | 2019-03-09 14:33 | PN ---
Progress Note, Physician Chief Complaint: SOB which is improving Tenderness to right shoulder History of Present Illness: 68 year old with pmhx of dm and spinal disease s/p recent c-spine surgery - Current Medication List Current Medications: Active Medications Diphenhydramine HCl (Benadryl -) 25 mg PO Q6H PRN PRN Reason: FOR ITCHING Duloxetine HCl (Cymbalta -) 60 mg PO DAILY [facility] 234 BEDS AT [facility] Last Admin: 03/09/19 09:23 Dose: 60 mg Fentanyl (Duragesic 50mcg Patch -) 1 patch TD Q72H [facility] 234 BEDS AT [facility] Stop: 03/14/19 14:15 Last Admin: 03/07/19 14:53 Dose: 1 patch Ferrous Sulfate (Feosol -) 325 mg PO DAILY@0800 [facility] 234 BEDS AT [facility] Last Admin: 03/09/19 08:06 Dose: 325 mg Folic Acid (Folic Acid -) 1 mg PO DAILY [facility] 234 BEDS AT [facility] Last Admin: 03/09/19 09:23 Dose: 1 mg Gabapentin (Neurontin -) 300 mg PO QID [facility] 234 B[facility]S AT [facility] Last Admin: 03/09/19 13:28 Dose: 300 mg Heparin Sodium (Porcine) (Heparin -) 5,000 unit SQ TID [facility] 234 BEDS AT [facility] Last Admin: 03/09/19 13:28 Dose: 5,000 unit Cefazolin Sodium (Ancef 1 Gm Premixed Ivpb -) 1 gm in 50 mls @ 100 mls/hr IVPB Q8H-IV [facility] 234 BEDS AT [facility] Last Admin: 03/09/19 09:21 Dose: 100 mls/hr Insulin Aspart (Novolog Vial Sliding Scale -) 1 vial SQ TIDAC [facility] 234 BEDS AT [facility]; Protocol Last Admin: 03/09/19 11:23 Dose: 4 units Lisinopril (Prinivil) 10 mg PO DAILY [facility] 234 BEDS AT [facility] Metformin HCl (Glucophage -) 500 mg PO BID@0700,1630 [facility] 234 BEDS AT [facility] Last Admin: 03/09/19 06:22 Dose: 500 mg Miscellaneous (Duragesic Patch Waste) 1 each MC PRN PRN PRN Reason: PAIN Morphine Sulfate (Msir -) 15 mg PO Q4H PRN PRN Reason: PAIN SCALE = OR >5 Last Admin: 03/09/19 13:28 Dose: 15 mg Ondansetron HCl (Zofran Injection) 4 mg IVPUSH Q6H PRN PRN Reason: NAUSEA Pantoprazole Sodium (Protonix Iv) 40 mg IVPUSH BID [facility] 234 BEDS AT [facility] Last Admin: 03/09/19 09:25 Dose: 40 mg Tizanidine HCl (Tizanidine Hcl) 4 mg PO TID [facility] 234 BEDS AT [facility] Last Admin: 03/09/19 13:29 Dose: 4 mg - Objective Vital Signs: Vital Signs Temperature 98.8 F 03/09/19 09:00 Pulse Rate 131 H 03/09/19 09:00 Respiratory Rate 22 H 03/09/19 09:00 Blood Pressure 181/98 H 03/09/19 09:00 O2 Sat by Pulse Oximetry (%) 97 03/09/19 09:00 Constitutional: Yes: No Distress, Calm, Anxious Neck: Yes: Supple Cardiovascular: Yes: Regular Rate and Rhythm, S1, S2. No: JVD, Murmur Respiratory: Yes: CTA Bilaterally Gastrointestinal: Yes: Soft Edema: No Labs: CBC, BMP 03/09/19 10:51 03/09/19 10:51 INR, PTT INR 0.96 (0.83-1.09) 03/02/19 15:21 Assessment/Plan 68 year old with pmhx of dm and spinal disease s/p recent c-spine surgery Today says developed sob. Also with some mild right shoulder and chest wall tenderness to palpation (mainly shoulder) BP elevated Sinus tachy Elevated D-dimer 1) SOB -Possible that it is due to anxiety but given recent spinal surgery, tachycardic , and elevated d-dimer consider r/o PE. -Echocardiogram on 03/03 with normal LVEF and no significant valve disease. -NST 03/02/19 no ischemia -EKG today sinus tachycardia at 117bpm no acute ischemic changes. Trop today negative x1. Finish CE's x3. Serial ekg's Pain control Started on lisinopril 10mg daily for htn given h/o dm. Uptitrate lisinopril dose as needed.
--- NOTE | 2019-03-09 15:18 | EKG ---
Test Reason : Blood Pressure : / mmHG Vent. Rate : 117 BPM Atrial Rate : 117 BPM P-R Int : 184 ms QRS Dur : 084 ms QT Int : 320 ms P-R-T Axes : 029 022 054 degrees QTc Int : 446 ms SINUS TACHYCARDIA OTHERWISE NORMAL ECG WHEN COMPARED WITH ECG OF 08-MAR-2019 14:52, VENT. RATE HAS INCREASED BY 40 BPM Confirmed by STEPHEN HAILE MD ([id number]) on 03/09/2019 3:17:35 PM Referred By: GULSHAN JARVIS Confirmed By:STEPHEN HAILE MD
[2019-03-10] MEDS: CEFAZOLIN 1 GM/D5W 1 GM/50 ML BAG IVPB SCH ×3 (03:08→17:18)
[2019-03-10 04:11] LABS: SERUM IRON SATURATION 18 % (15-55); TOTAL IRON BINDING CAPACITY 218 ug/dL (250-450); UIBC 179 ug/dL (111-343)
[2019-03-10] MEDS: metFORMIN HCL 500 MG TABLET (FP) PO SCH ×2 (06:21→17:18)
[2019-03-10] MEDS: HEPARIN NA (PORCINE) 5,000 UNITS/ML 1ML VIAL SQ SCH ×2 (06:21→13:12)
[2019-03-10] MEDS: morphine SULFATE IMMEDIATE RELEASE 30 MG TAB PO PRN ×3 (06:21→20:27)
[2019-03-10] MEDS: INSULIN SLIDING SCALE (NOVOLOG) 1 VIAL SQ SCH ×3 (06:22→17:19)
[2019-03-10] MEDS: TIZANIDINE HCL 4 MG TABLET PO SCH ×3 (06:22→21:22)
--- NOTE | 2019-03-10 08:11 | PN ---
Progress Note (short form) - Note Progress Note: POD #7 Alert. Sitting up in bed at 30 degrees. Wearing his C-collar 23/24 hours/day as instructed. States he is getting OOB. PT notes reviewed. Voiding spontaneously. Tolerating PO diet. Patient had elevated D-dimer so Medicine ordered a LE U/S to r/o DVT --> study came back negative for DVT. Denies n/v/f/c, CP, palpitations, SOB, CANCINO, numbness or tingling in his upper extremities. Last Vital Signs Temp Pulse Resp BP Pulse Ox 98.2 F 92 H 20 143/80 97 03/10/19 06:37 03/10/19 06:37 03/10/19 06:37 03/10/19 06:37 03/09/19 21:00 PE GEN: A&Ox3, NAD PULM: CTA bilat Neck: Anterior --> dressing c/d/i. Trachea midline. Posterior --> dressing c/d/i. Mild edema and ecchymosis over b/l trapezius. JORGE minimal output MOTOR: B/L US 5/5 bowling ball weigher and packer strength, with sensation to light touch intact throughout. B/L LE Compartments soft, supple and non-tender to palpation, feet warm and well perfused with + dp pulses. Problem List - Problems (1) Status post cervical spinal fusion Assessment/Plan: POD #7 s/p Exploration of spinal fusion with C2-C7 Laminectomies and yazidi of lordosis with Lateral mass screw instrumentation, Exploration of spinal, with Revision on 03/05/19. Pain mngt per Dr Heri Cole c-collar 23 hours day- wash collar pads as instructed as they are saturated with sweat. OOB to chair Mobilize w/ PT DVT prophylaxis Medical team to manage BP JORGE dc'd on rounds. Ostium as well as front/back incisions new application of dermabond and dressed with new 4x4 and tegaderms No further neurosurgical intervention. Patient is cleared for discharge today Above plan discussed with Dr. Saavedra and agrees.
[2019-03-10] MEDS: FERROUS SO4 325 MG TABLET (FP) PO SCH (08:21)
[2019-03-10] MEDS ORDERED: LISINOPRIL 10 MG TABLET (FP) PO SCH (10:00)
--- NOTE | 2019-03-10 10:52 | PN ---
Progress Note, Physician History of Present Illness: seen and examined today in [facility]. states he is feeling much better today. - Current Medication List Current Medications: Active Medications Diphenhydramine HCl (Benadryl -) 25 mg PO Q6H PRN PRN Reason: FOR ITCHING Duloxetine HCl (Cymbalta -) 60 mg PO DAILY [facility] Last Admin: 03/09/19 09:23 Dose: 60 mg Fentanyl (Duragesic 50mcg Patch -) 1 patch TD Q72H [facility] Stop: 03/14/19 14:15 Last Admin: 03/07/19 14:53 Dose: 1 patch Ferrous Sulfate (Feosol -) 325 mg PO DAILY@0800 [facility] Last Admin: 03/10/19 08:21 Dose: 325 mg Folic Acid (Folic Acid -) 1 mg PO DAILY [facility] Last Admin: 03/09/19 09:23 Dose: 1 mg Gabapentin (Neurontin -) 300 mg PO QID [facility] Last Admin: 03/09/19 21:18 Dose: 300 mg Heparin Sodium (Porcine) (Heparin -) 5,000 unit SQ TID [facility] Last Admin: 03/10/19 06:21 Dose: 5,000 unit Cefazolin Sodium (Ancef 1 Gm Premixed Ivpb -) 1 gm in 50 mls @ 100 mls/hr IVPB Q8H-IV [facility] Last Admin: 03/10/19 03:08 Dose: 100 mls/hr Insulin Aspart (Novolog Vial Sliding Scale -) 1 vial SQ TIDAC [facility]; Protocol Last Admin: 03/10/19 06:22 Dose: 4 units Lisinopril (Prinivil) 10 mg PO DAILY [facility] Metformin HCl (Glucophage -) 500 mg PO BID@0700,1630 [facility] Last Admin: 03/10/19 06:21 Dose: 500 mg Miscellaneous (Duragesic Patch Waste) 1 each [facility] PRN PRN PRN Reason: PAIN Morphine Sulfate (Msir -) 15 mg PO Q4H PRN PRN Reason: PAIN SCALE = OR >5 Last Admin: 03/10/19 06:21 Dose: 15 mg Ondansetron HCl (Zofran Injection) 4 mg IVPUSH Q6H PRN PRN Reason: NAUSEA Pantoprazole Sodium (Protonix Iv) 40 mg IVPUSH BID [facility] Last Admin: 03/09/19 21:19 Dose: 40 mg Tizanidine HCl (Tizanidine Hcl) 4 mg PO TID [facility] Last Admin: 03/10/19 06:22 Dose: 4 mg - Objective Vital Signs: Vital Signs Temperature 98.7 F 03/10/19 09:15 Pulse Rate 99 H 03/10/19 09:15 Respiratory Rate 17 03/10/19 09:15 Blood Pressure 152/82 03/10/19 09:15 O2 Sat by Pulse Oximetry (%) 97 03/09/19 21:00 Constitutional: Yes: No Distress, Calm Eyes: Yes: Conjunctiva Clear, EOM Intact HENT: Yes: Atraumatic, Normocephalic Neck: Yes: Supple, Trachea Midline Cardiovascular: Yes: Regular Rate and Rhythm, S1, S2. No: Bradycardia, Tachycardia, Pulse Irregular, Bruit, JVD, Gallop, Murmur, Rub, S3, S4, Varicosities Respiratory: Yes: Regular, CTA Bilaterally. No: Rales, Rhonchi, SOB, Wheezes Gastrointestinal: Yes: Normal Bowel Sounds, Soft. No: Distention, Tenderness Edema: No Peripheral Pulses WNL: Yes Neurological: Yes: Alert, Oriented Psychiatric: Yes: Alert, Oriented Labs: CBC, BMP 03/09/19 10:51 03/09/19 10:51 INR, PTT INR 0.96 (0.83-1.09) 03/02/19 15:21 - ....Imaging Chest X-ray: Report Reviewed, Image Reviewed EKG: Report Reviewed, Image Reviewed Other: Report Reviewed, Image Reviewed Assessment/Plan 68 year old with pmhx of dm and spinal disease s/p recent c-spine surgery 03/09 says developed sob. Also with some mild right shoulder and chest wall tenderness to palpation (mainly shoulder) BP elevated Sinus tachy Elevated D-dimer SOB -Possible that it is due to anxiety but given recent spinal surgery, tachycardic , and elevated d-dimer consider r/o PE. -doppler US was done showed no DVTs -symptoms improved with anxiety control -Echocardiogram on 03/03 with normal LVEF and no significant valve disease. -NST 03/02/19 no ischemia -EKG 03/09 sinus tachycardia at 117bpm no acute ischemic changes. -Trop 03/08 and 03/09 wnl -Pain control -HTN likely exacerbated by discomfort and anxiety, Started on lisinopril 10mg daily for htn given h/o dm. Uptitrate lisinopril dose as needed.
[2019-03-10] MEDS: GABAPENTIN 300 MG CAPSULE (FP) PO SCH ×4 (10:58→21:22)
[2019-03-10] MEDS: DULoxetine HCL 30 MG CAPSULE.DR (FP) PO SCH (10:58)
[2019-03-10] MEDS: FOLIC ACID 1 MG TABLET (FP) PO SCH (10:58)
[2019-03-10] MEDS: PANTOPRAZOLE SODIUM 40 MG VIAL IVPUSH SCH ×2 (11:02→21:22)
[2019-03-10] MEDS ORDERED: INSULIN (NOVOLOG) ASPART 100 UNITS/ML 10ML VIAL ONE (11:21)
[2019-03-10] MEDS: fentaNYL 50mcg/hr PATCH.TD72 TD SCH (13:15)
[2019-03-10] MEDS ORDERED: dilTIAZem HCL 50 MG/10 ML - 10 ML VIAL IVPUSH ONE (14:40)
[2019-03-10] MEDS ORDERED: METOPROLOL TARTRATE 5 MG/5 ML VIAL IVPB ONE (14:46)
--- NOTE | 2019-03-10 14:46 | RAPID ---
Physical Examination Vital Signs: Vital Signs Temperature 98.7 F 03/10/19 09:15 Pulse Rate 99 H 03/10/19 09:15 Respiratory Rate 17 03/10/19 09:15 Blood Pressure 152/82 03/10/19 09:15 O2 Sat by Pulse Oximetry (%) 94 L 03/10/19 09:00 Labs: CBC, BMP 03/09/19 10:51 03/09/19 10:51 Rapid Response - Rapid Response Assessment: S: Rapid response called for new onset Afib w RVR. No chest pain, no SOB. O:On PE VS stable 163/77 except HR which was 153(irregularly irregular). PT is alert and oriented x3 and diaphoretic. Pt. has anterior dressing w/ cervical collar(23Hr/day) A: Afib w/ RVR in stable Pt. P: Stat EKG and troponin ordered, Ordered Lopressor 5mg IVPB, ordered 20mg Cardiz[address] IVP. Dr. Frederick notified. Pt. transferred to Telemetry.
--- NOTE | 2019-03-10 14:59 | PN ---
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 and EKG done STAT showing rhythm of A-fib with RVR, Lopressor 5mg IVPB STAT ordered and patient to be transferred to [facility] for cardiac monitoring--patient denies chest pain, dizziness , palpitations - Current Medication List Current Medications: Active Medications Diphenhydramine HCl (Benadryl -) 25 mg PO Q6H PRN PRN Reason: FOR ITCHING Duloxetine HCl (Cymbalta -) 60 mg PO DAILY [facility] Last Admin: 03/10/19 10:58 Dose: 60 mg Fentanyl (Duragesic 50mcg Patch -) 1 patch TD Q72H [facility] Stop: 03/14/19 14:15 Last Admin: 03/10/19 13:15 Dose: 1 patch Ferrous Sulfate (Feosol -) 325 mg PO DAILY@0800 [facility] Last Admin: 03/10/19 08:21 Dose: 325 mg Folic Acid (Folic Acid -) 1 mg PO DAILY [facility] Last Admin: 03/10/19 10:58 Dose: 1 mg Gabapentin (Neurontin -) 300 mg PO QID [facility] Last Admin: 03/10/19 13:12 Dose: 300 mg Heparin Sodium (Porcine) (Heparin -) 5,000 unit SQ TID [facility] Last Admin: 03/10/19 13:12 Dose: 5,000 unit Cefazolin Sodium (Ancef 1 Gm Premixed Ivpb -) 1 gm in 50 mls @ 100 mls/hr IVPB Q8H-IV [facility] Last Admin: 03/10/19 10:58 Dose: 100 mls/hr Insulin Aspart (Novolog Vial Sliding Scale -) 1 vial SQ TIDAC [facility]; Protocol Last Admin: 03/10/19 11:25 Dose: 4 units Lisinopril (Prinivil) 10 mg PO DAILY [facility] Last Admin: 03/10/19 10:58 Dose: 10 mg Metformin HCl (Glucophage -) 500 mg PO BID@0700,1630 [facility] Last Admin: 03/10/19 06:21 Dose: 500 mg Miscellaneous (Duragesic Patch Waste) 1 each MC PRN PRN PRN Reason: PAIN Last Admin: 03/10/19 13:19 Dose: 1 each Morphine Sulfate (Msir -) 15 mg PO Q4H PRN PRN Reason: PAIN SCALE = OR >5 Last Admin: 03/10/19 11:52 Dose: 15 mg Ondansetron HCl (Zofran Injection) 4 mg IVPUSH Q6H PRN PRN Reason: NAUSEA Pantoprazole Sodium (Protonix Iv) 40 mg IVPUSH BID [facility] Last Admin: 03/10/19 11:02 Dose: 40 mg Tizanidine HCl (Tizanidine Hcl) 4 mg PO TID [facility] Last Admin: 03/10/19 13:12 Dose: 4 mg - Objective Vital Signs: Vital Signs Temperature 98.7 F 03/10/19 09:15 Pulse Rate 131 H 03/10/19 14:10 Respiratory Rate 20 03/10/19 14:10 Blood Pressure 163/77 03/10/19 14:10 O2 Sat by Pulse Oximetry (%) 94 L 03/10/19 09:00 Constitutional: Yes: No Distress, Calm, Diaphoresis Eyes: Yes: Conjunctiva Clear Neck: Yes: Other (c-collar in place) Cardiovascular: Yes: Tachycardia, Pulse Irregular Respiratory: Yes: Regular, CTA Bilaterally Gastrointestinal: Yes: Normal Bowel Sounds, Soft Musculoskeletal: Yes: Muscle Weakness Extremities: Yes: WNL Edema: No Neurological: Yes: Alert, Oriented Psychiatric: Yes: Alert, Oriented Labs: CBC, BMP 03/09/19 10:51 03/09/19 10:51 INR, PTT INR 0.96 (0.83-1.09) 03/02/19 15:21 Problem List - Problems (1) Atrial fibrillation with RVR Assessment/Plan: -patient transferred to [facility] for cardiac monitoring -Lopressor 5mg IVPB -Cardizem 20mg IVP -EKG and troponin STAT -re-consult cardio Code(s): I48.91 - UNSPECIFIED ATRIAL FIBRILLATION (2) Cervical spondylitis Assessment/Plan: -POD #7 Exploration of spinal fusion with C2-C7 laminectomies and yazdanism of lordosis with lateral massscrew instrumentation, exploration of spinal fusion and removal of anterior plate/hardware -IV cefazolin -pain management -c-collar for 23 hr/day Code(s): M46.92 - UNSPECIFIED INFLAMMATORY SPONDYLOPATHY, CERVICAL REGION (3) HTN (hypertension) Assessment/Plan: -continue Lisinopril -low Na diet Code(s): I10 - ESSENTIAL (PRIMARY) HYPERTENSION (4) IDDM (insulin dependent diabetes mellitus) Assessment/Plan: -continue Metformin -BGM ACHS -ISS Code(s): E11.9 - TYPE 2 DIABETES MELLITUS WITHOUT COMPLICATIONS; 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
--- NOTE | 2019-03-10 15:08 | EKG ---
Test Reason : Blood Pressure : / mmHG Vent. Rate : 161 BPM Atrial Rate : 192 BPM P-R Int : 000 ms QRS Dur : 082 ms QT Int : 278 ms P-R-T Axes : 000 026 182 degrees QTc Int : 454 ms ATRIAL FIBRILLATION WITH RAPID VENTRICULAR RESPONSE NONSPECIFIC ST AND T WAVE ABNORMALITY ABNORMAL ECG WHEN COMPARED WITH ECG OF 09-MAR-2019 11:05, ATRIAL FIBRILLATION HAS REPLACED SINUS RHYTHM Confirmed by MD Alphonso, German ([id number]) on 03/10/2019 3:07:20 PM Referred By: Anirudh KERR Confirmed By:German Werner MD
[2019-03-10] MEDS ORDERED: FENTANYL PATCH WASTE MC PRN (15:41)
[2019-03-10] MEDS ORDERED: diphenhydrAMINE HCL 25 MG CAPSULE (FP) PO PRN (15:41)
[2019-03-10] MEDS ORDERED: FENTANYL PATCH WASTE TD PRN (15:41)
[2019-03-10] MEDS ORDERED: ONDANSETRON 4 MG/2 ML VIAL IVPUSH PRN (15:41)
--- NOTE | 2019-03-10 16:34 | EKG ---
Test Reason : Blood Pressure : / mmHG Vent. Rate : 107 BPM Atrial Rate : 086 BPM P-R Int : 000 ms QRS Dur : 088 ms QT Int : 358 ms P-R-T Axes : 000 026 049 degrees QTc Int : 477 ms ATRIAL FIBRILLATION WITH RAPID VENTRICULAR RESPONSE ABNORMAL ECG WHEN COMPARED WITH ECG OF 10-MAR-2019 14:31, VENT. RATE HAS DECREASED BY [address] NO LONGER DEPRESSED IN ANTEROLATERAL LEADS Confirmed by MD LUIS FELIPE, NOEL ([id number]) on 03/10/2019 4:34:08 PM Referred By: Anirudh KERR Confirmed By:NOEL BRISCOE MD
[2019-03-10] MEDS ORDERED: HEPARIN NA (PORCINE) 5,000 UNITS/ML 1ML VIAL IVPUSH PRN ×2 (17:11)
[2019-03-10] MEDS: METOPROLOL TARTRATE 25 MG TABLET (FP) PO SCH ×2 (17:18→21:22)
[2019-03-10] MEDS ORDERED: PT OWN MED DRAWER 7, Y5N ONE ×2 (18:47→20:57)
[2019-03-10] MEDS: HEPARIN - 25,000 UNIT in SODIUM CHLORIDE 495 ML IV SCH (18:57)
[2019-03-10] MEDS ORDERED: HEPARIN NA (PORCINE) 5,000 UNITS/ML 1ML VIAL SQ SCH (22:00)
[2019-03-11] MEDS: CEFAZOLIN 1 GM/D5W 1 GM/50 ML BAG IVPB SCH ×2 (02:20→10:44)
[2019-03-11] MEDS: morphine SULFATE IMMEDIATE RELEASE 30 MG TAB PO PRN ×3 (05:17→15:02)
[2019-03-11] MEDS: METOPROLOL TARTRATE 25 MG TABLET (FP) PO SCH ×2 (06:40→18:01)
[2019-03-11] MEDS: metFORMIN HCL 500 MG TABLET (FP) PO SCH ×2 (06:41→18:00)
[2019-03-11] MEDS: TIZANIDINE HCL 4 MG TABLET PO SCH ×3 (06:41→21:57)
[2019-03-11] MEDS: INSULIN SLIDING SCALE (NOVOLOG) 1 VIAL SQ SCH ×3 (06:42→17:55)
[2019-03-11 06:59] LABS: ALBUMIN 2.5 g/dl (3.4-5.0); ALK PHOS 55 U/L (45-117); ANION GAP 6 MMOL/L (8-16); BILIRUBIN,TOTAL 0.6 mg/dL (0.2-1); BLOOD UREA NITROGEN 12 mg/dL (7-18); CALCIUM 7.9 mg/dL (8.5-10.1); CHLORIDE 96 mmol/L (98-107); CO2 30 mmol/L (21-32); CREATININE 0.5 mg/dL (0.55-1.3); GLUCOSE,RANDOM 222 mg/dL (74-106); POTASSIUM 3.4 mmol/L (3.5-5.1); SGOT/AST 27 U/L (15-37); SGPT/ALT 33 U/L (13-61); SODIUM 132 mmol/L (136-145); TOT PROT 5.5 g/dl (6.4-8.2)
[2019-03-11] MEDS: GABAPENTIN 300 MG CAPSULE (FP) PO SCH ×4 (10:37→21:56)
[2019-03-11] MEDS: FERROUS SO4 325 MG TABLET (FP) PO SCH (10:37)
[2019-03-11] MEDS: DULoxetine HCL 30 MG CAPSULE.DR (FP) PO SCH (10:43)
[2019-03-11] MEDS: FOLIC ACID 1 MG TABLET (FP) PO SCH (10:43)
[2019-03-11] MEDS: LISINOPRIL 10 MG TABLET (FP) PO SCH (10:44)
[2019-03-11] MEDS: HEPARIN - 25,000 UNIT in SODIUM CHLORIDE 495 ML IV SCH (10:44)
[2019-03-11] MEDS: PANTOPRAZOLE SODIUM 40 MG VIAL IVPUSH SCH ×2 (10:44→21:57)
[2019-03-11] MEDS ORDERED: POTASSIUM CHLORIDE TABS 20 MEQ TABLET.ER (FP) PO ONE (11:28)
--- NOTE | 2019-03-11 11:34 | PN ---
Progress Note, Physician Chief Complaint: 1st degree AV block Pre-op Cervical laminectomy Paraplegia History of Present Illness: NAD S/P cervical laminectomy and exploration Seen by cardiology Transferred to [facility] for afib Controlled now on metoprolol tart 25 tid on heparin drip K+ still at 3.4 - Current Medication List Current Medications: Active Medications Diphenhydramine HCl (Benadryl -) 25 mg PO Q6H PRN PRN Reason: FOR ITCHING Duloxetine HCl (Cymbalta -) 60 mg PO DAILY [facility] Last Admin: 03/11/19 10:43 Dose: 60 mg Fentanyl (Duragesic 50mcg Patch -) 1 patch TD Q72H [facility] Stop: 03/14/19 14:15 Ferrous Sulfate (Feosol -) 325 mg PO DAILY@0800 [facility] Last Admin: 03/11/19 10:37 Dose: 325 mg Folic Acid (Folic Acid -) 1 mg PO DAILY [facility] Last Admin: 03/11/19 10:43 Dose: 1 mg Gabapentin (Neurontin -) 300 mg PO QID [facility] Last Admin: 03/11/19 10:37 Dose: 300 mg Heparin Sodium (Porcine) (Heparin -) 1,000 unit IVPUSH PRN PRN PRN Reason: Heparin Last Admin: 03/11/19 10:44 Dose: 1,000 unit Heparin Sodium (Porcine) (Heparin -) 5,000 unit IVPUSH PRN PRN PRN Reason: Heparin Last Admin: 03/10/19 23:54 Dose: 5,000 unit Cefazolin Sodium (Ancef 1 Gm Premixed Ivpb -) 1 gm in 50 mls @ 100 mls/hr IVPB Q8H-IV [facility] Last Admin: 03/11/19 10:44 Dose: 100 mls/hr Heparin Sodium (Porcine) 25, (000 unit/ Sodium Chloride) 500 mls @ 20 mls/hr IV TITR [facility]; Protocol Last Admin: 03/11/19 10:44 Dose: 1,250 unit/hr, 25 mls/hr Insulin Aspart (Novolog Vial Sliding Scale -) 1 vial SQ TIDAC [facility]; Protocol Last Admin: 03/11/19 06:42 Dose: 4 units Lisinopril (Prinivil) 10 mg PO DAILY [facility] Last Admin: 03/11/19 10:44 Dose: 10 mg Metformin HCl (Glucophage -) 500 mg PO BID@0700,1630 [facility] Last Admin: 03/11/19 06:41 Dose: 500 mg Metoprolol Tartrate (Lopressor -) 25 mg PO TID [facility] Last Admin: 03/11/19 06:40 Dose: 25 mg Miscellaneous (Duragesic Patch Waste) 1 each TD PRN PRN PRN Reason: PAIN Miscellaneous (Duragesic Patch Waste) 1 each TD PRN PRN PRN Reason: PAIN Morphine Sulfate (Msir -) 15 mg PO Q4H PRN PRN Reason: PAIN SCALE 5-10 Last Admin: 03/11/19 10:37 Dose: 15 mg Ondansetron HCl (Zofran Injection) 4 mg IVPUSH Q6H PRN PRN Reason: NAUSEA Pantoprazole Sodium (Protonix Iv) 40 mg IVPUSH BID [facility] Last Admin: 03/11/19 10:44 Dose: 40 mg Tizanidine HCl (Tizanidine Hcl) 4 mg PO TID [facility] Last Admin: 03/11/19 06:41 Dose: 4 mg - Objective Vital Signs: Vital Signs Temperature 98.3 F 03/11/19 08:28 Pulse Rate 80 03/11/19 08:28 Respiratory Rate 16 03/11/19 08:28 Blood Pressure 150/70 03/11/19 08:28 O2 Sat by Pulse Oximetry (%) 98 03/10/19 21:00 Constitutional: Yes: Well Nourished, No Distress, Calm Neck: Yes: Other (neck collar) Cardiovascular: Yes: Regular Rate and Rhythm Respiratory: Yes: Regular Gastrointestinal: Yes: WNL Musculoskeletal: Yes: Muscle Weakness Extremities: Yes: WNL Edema: No Peripheral Pulses WNL: Yes Neurological: Yes: Alert, Oriented Psychiatric: Yes: Alert, Oriented Labs: CBC, BMP 03/09/19 10:51 03/11/19 05:30 INR, PTT INR 0.96 (0.83-1.09) 03/02/19 15:21 Problem List - Problems (1) Cervical spondylitis Assessment/Plan: -Seen by Neurosurgery -s/p cervical laminectomy and exploration -Seen by Dr Liriano-pain management -change pain medicaion regimen as follows: d/c fentanyl and oxycodone -Restart start MS contin 15 mg po bid with MS IR 15 Q6H PRN -Continue Gabapentin 300 mg po qid -Continue Tizinadine 4 mg TID Code(s): M46.92 - UNSPECIFIED INFLAMMATORY SPONDYLOPATHY, CERVICAL REGION (2) Paraplegia Code(s): G82.20 - PARAPLEGIA, UNSPECIFIED (3) Muscle weakness of extremity Code(s): M62.81 - MUSCLE WEAKNESS (GENERALIZED) (4) Diabetes Assessment/Plan: -BGM AC HS -Novolog sliding scale -A1c 6.4 Code(s): E11.9 - TYPE 2 DIABETES MELLITUS WITHOUT COMPLICATIONS Qualifiers: Diabetes mellitus type: type 2 (5) HTN (hypertension) Assessment/Plan: -Seen by Cardiology -Continue Lisinopril 10 mg po daily -d/c Metoprolol tart 25 mg po tid -start metoprolol succ 50 bid -monitor trend Code(s): I10 - ESSENTIAL (PRIMARY) HYPERTENSION (6) Atrial fibrillation with RVR Assessment/Plan: -Transferred to Tele yesterday for new onset of Afib -No valvular issue on echo -Seen by cardiology -converted back to NSR now -On metoprolol 25 mg po tid -D/C heaprin drip -Start Eliquis 5 mg po bid -CTA to r/o PE Code(s): I48.91 - UNSPECIFIED ATRIAL FIBRILLATION Assessment/Plan See problem list Plan is for pt to catch a flight back to [place] on 03/13/19 if CTA chest is negative, f/u with his PCP and cardiology there. Start rehab in [place]. 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 His will take all the medical records from [facility] with her. Case discussed with Dr Saavedra and pt's . Temporary supply of medications called in to local [facility] [address] Please call in Metoprolol Succinate 50 mg po bid, once cleared by cardiology.
--- NOTE | 2019-03-11 14:42 | PN ---
Progress Note, Physician Chief Complaint: Feels better Sinus on tele with pac's and short atrial runs History of Present Illness: 68 year old with pmhx of dm and spinal disease s/p recent c-spine surgery Episodes of tachycardia and sob. Noted to have afib with RVR on 03/10/19 - Current Medication List Current Medications: Active Medications Apixaban (Eliquis -) 5 mg PO BID [facility] Apixaban (Eliquis -) 5 mg PO ONCE ONE Stop: 03/11/19 17:01 Diphenhydramine HCl (Benadryl -) 25 mg PO Q6H PRN PRN Reason: FOR ITCHING Duloxetine HCl (Cymbalta -) 60 mg PO DAILY [facility] Last Admin: 03/11/19 10:43 Dose: 60 mg Ferrous Sulfate (Feosol -) 325 mg PO DAILY@0800 [facility] Last Admin: 03/11/19 10:37 Dose: 325 mg Folic Acid (Folic Acid -) 1 mg PO DAILY [facility] Last Admin: 03/11/19 10:43 Dose: 1 mg Gabapentin (Neurontin -) 300 mg PO QID [facility] Last Admin: 03/11/19 10:37 Dose: 300 mg Insulin Aspart (Novolog Vial Sliding Scale -) 1 vial SQ TIDAC [facility]; Protocol Last Admin: 03/11/19 11:13 Dose: Not Given Lisinopril (Prinivil) 10 mg PO DAILY [facility] Last Admin: 03/11/19 10:44 Dose: 10 mg Metformin HCl (Glucophage -) 500 mg PO BID@0700,1630 [facility] Last Admin: 03/11/19 06:41 Dose: 500 mg Metoprolol Succinate (Toprol Xl -) 50 mg PO BID [facility] Miscellaneous (Duragesic Patch Waste) 1 each TD PRN PRN PRN Reason: PAIN Miscellaneous (Duragesic Patch Waste) 1 each TD PRN PRN PRN Reason: PAIN Morphine Sulfate (Msir -) 15 mg PO Q4H PRN PRN Reason: PAIN SCALE 5-10 Last Admin: 03/11/19 10:37 Dose: 15 mg Morphine Sulfate (Ms Contin -) 15 mg PO BID [facility] Ondansetron HCl (Zofran Injection) 4 mg IVPUSH Q6H PRN PRN Reason: NAUSEA Pantoprazole Sodium (Protonix Iv) 40 mg IVPUSH BID [facility] Last Admin: 03/11/19 10:44 Dose: 40 mg Potassium Chloride (K-Dur -) 20 meq PO DAILY [facility] Tizanidine HCl (Tizanidine Hcl) 4 mg PO TID [facility] Last Admin: 03/11/19 06:41 Dose: 4 mg - Objective Vital Signs: Vital Signs Temperature 99.2 F 03/11/19 14:00 Pulse Rate 78 03/11/19 14:00 Respiratory Rate 20 03/11/19 14:00 Blood Pressure 134/66 03/11/19 14:00 O2 Sat by Pulse Oximetry (%) 98 03/10/19 21:00 Constitutional: Yes: No Distress Neck: Yes: Supple Cardiovascular: Yes: Regular Rate and Rhythm, S1, S2. No: JVD Respiratory: Yes: CTA Bilaterally Edema: No Labs: CBC, BMP 03/09/19 10:51 03/11/19 05:30 INR, PTT INR 0.96 (0.83-1.09) 03/02/19 15:21 Assessment/Plan 68 year old with pmhx of dm and spinal disease s/p recent c-spine surgery Today says developed sob. Also with some mild right shoulder and chest wall tenderness to palpation (mainly shoulder) BP elevated Sinus tachy Elevated D-dimer 1) Afib -sinus today on tele Would increase metoprolol to 50mg q12 -Echocardiogram on 03/03 with normal LVEF and no significant valve disease. -NST 03/02/19 no ischemia -Pain control -Would consider ruling out PE with imaging
[2019-03-11] MEDS ORDERED: PT OWN MED DRAWER 7, Y5N ONE (15:02)
[2019-03-11] MEDS ORDERED: APIXABAN 5 MG TABLET PO ONE (17:00)
[2019-03-11] MEDS: METOPROLOL TARTRATE 50 MG TABLET (FP) PO SCH (21:55)
[2019-03-11] MEDS: morphine SO4 SUSTAINED ACTING 15 MG TABLET.SA PO SCH (21:55)
[2019-03-11] MEDS ORDERED: ZOLPIDEM TARTRATE 5 MG TABLET PO ONE (22:08)
[2019-03-12] MEDS: morphine SULFATE IMMEDIATE RELEASE 30 MG TAB PO PRN ×2 (03:13→13:37)
[2019-03-12] MEDS: TIZANIDINE HCL 4 MG TABLET PO SCH ×2 (06:29→13:38)
[2019-03-12] MEDS: metFORMIN HCL 500 MG TABLET (FP) PO SCH (06:29)
[2019-03-12] MEDS: INSULIN SLIDING SCALE (NOVOLOG) 1 VIAL SQ SCH (06:31)
[2019-03-12 06:44] VITALS: BP 141/82; PULSE 65; TEMP 98.2
[2019-03-12 07:07] LABS: BASO % 0.4 % (0-2.0); EOS % 5.2 % (0-4.5); HEMATOCRIT 30.4 % (35.4-49); HEMOGLOBIN 10.9 GM/dL (11.7-16.9); LYMPH % 15.6 % (8-40); MCH 31.7 pg (25.7-33.7); MEAN CELL VOLUME 88.1 fl (80-96); MEAN PLT VOLUME 7.9 fl (7.5-11.1); MONO % 9.5 % (3.8-10.2); NEUT % 69.3 % (42.8-82.8); PLATELET COUNT 289 K/MM3 (134-434); RBC 3.45 M/mm3 (4.00-5.60); RDW 13.1 % (11.9-15.9); WHITE BLOOD COUNT 8.9 K/mm3 (4.0-10.0)
[2019-03-12 07:26] LABS: ANION GAP 7 MMOL/L (8-16); BLOOD UREA NITROGEN 11 mg/dL (7-18); CALCIUM 7.8 mg/dL (8.5-10.1); CHLORIDE 97 mmol/L (98-107); CO2 30 mmol/L (21-32); CREATININE 0.6 mg/dL (0.55-1.3); GLUCOSE,RANDOM 210 mg/dL (74-106); SODIUM 134 mmol/L (136-145)
[2019-03-12] MEDS: METOPROLOL TARTRATE 50 MG TABLET (FP) PO SCH (09:36)
[2019-03-12] MEDS: morphine SO4 SUSTAINED ACTING 15 MG TABLET.SA PO SCH (09:37)
[2019-03-12] MEDS: FOLIC ACID 1 MG TABLET (FP) PO SCH (09:38)
[2019-03-12] MEDS: LISINOPRIL 10 MG TABLET (FP) PO SCH (09:38)
[2019-03-12] MEDS: FERROUS SO4 325 MG TABLET (FP) PO SCH (09:38)
[2019-03-12] MEDS: GABAPENTIN 300 MG CAPSULE (FP) PO SCH ×2 (09:38→13:38)
[2019-03-12] MEDS: PANTOPRAZOLE SODIUM 40 MG VIAL IVPUSH SCH (09:38)
[2019-03-12] MEDS: DULoxetine HCL 30 MG CAPSULE.DR (FP) PO SCH (09:38)
[2019-03-12] MEDS ORDERED: POTASSIUM CHLORIDE TABS 20 MEQ TABLET.ER (FP) PO SCH (10:00)
[2019-03-12] MEDS ORDERED: APIXABAN 5 MG TABLET PO SCH (10:00)
--- NOTE | 2019-03-12 12:32 | DS ---
Physical Examination Vital Signs: Vital Signs Temperature 98.2 F 03/12/19 06:00 Pulse Rate 65 03/12/19 06:00 Respiratory Rate 20 03/12/19 06:00 Blood Pressure 141/82 03/12/19 06:00 O2 Sat by Pulse Oximetry (%) 97 03/11/19 20:21 Constitutional: Yes: Calm Neck: Yes: Other (neck line incision) Cardiovascular: Yes: Regular Rate and Rhythm, S1, S2 Respiratory: Yes: CTA Bilaterally Gastrointestinal: Yes: Normal Bowel Sounds, Soft Edema: No Labs: CBC, BMP 03/12/19 05:30 03/12/19 05:30 Discharge Summary Reason For Visit: BACK PAIN Current Active Problems Anxiety (Acute) Atrial fibrillation with RVR (Acute) Back pain (Acute) Cervical spondylitis (Acute) Chest pain (Acute) HTN (hypertension) (Acute) IDDM (insulin dependent diabetes mellitus) (Acute) Muscle weakness of extremity (Acute) Neck pain (Acute) Paraplegia (Acute) Status post cervical spinal fusion (Acute) Other Procedures: - Note: Operative Date: 03/05/19. Pre-Operative Diagnosis: Cervical osteophyte. Operation: Posterior cervical wound exploration & osteotomies, Lateral foraminal deompression. Post-Operative Diagnosis: Same as Pre-op. Surgeon: Luc Saavedra. Tile Classifier: Marc Bowen. Anesthesiologist/PATIENT CARRIER: Hudson Dorsey Anesthesia: General. Estimated Blood Loss (mls): 900. Operative Report Dictated: Yes Hospital Course: Neck Pain, Back Pain, Muscle Weakness PCP: Dr. Frederick HISTORY OF PRESENT ILLNESS: This is a pleasant 68 y/o man from [place] with a PMHx of Diabetes Mellitus, Chronic Back Pain, BLE weakness, wheelchair bound with chronic neurological deficits initially due to an injury in 1989, multiple Spinal Surgeries. Who presents to the ED with a complaint of neck pain and radicular symptoms with decreased muscle strength and sensation. Patient was sent in for admission by Dr. Ledy Saavedra for planned cervical spine surgery tomorrow. Patient denies any new symptoms including fever, chills, SOB, CP, palpitations, AP, N/V/D, constipation. patient admitted had neck surgery post op elevater HR now afib with RVR started on eliquis and metoprolol d dimer elevated CTA orderd no PE bibasilar consolidation and pneumonia noted Condition: Stable - Instructions Diet, Activity, Other Instructions: Post Operative Instructions Physical Activity Resume your normal everyday activity as tolerated. No heavy lifting or exercise until seen by your surgeon. You may walk unlimited amounts and climb stairs. You may resume driving the car when you feel safe and comfortable behind the wheel and you are no longer wearing your brace. Do not operate a vehicle while taking narcotic medication. Brace Wear surgical collar 23 hr/day. Remove to shower only. Wound Care Keep your incision clean, dry and covered at all times. Apply an occlusive dressing (Saran wrap or Tegaderm) when showering to avoid getting your incision wet. Do not submerge incision or apply ointments or creams. The michael will be removed in the office in 10-14 days post-op. Diet There are no dietary restrictions. Eat healthy, high-fiber foods. Drink 6-8 glasses of liquid each day. This will assist in keeping your bowels regular. Pain Management You may take Tylenol or acetaminophen. Any pain prescription medication ordered should be taken as prescribed for moderate to severe pain. Call Dr Mario for any of the following: Severe pain not relieved by medication Fever of 101 or higher Excessive bleeding or drainage on dressing Inability to urinate Any chest pain or shortness of breath, seek Emergency Care. Call the office to confirm a post-operative appointment for 2-3 weeks post-op Luc Saavedra MD [facility] [place] [address] while in [place] case picker metoprolol and Eliquis from [facility] Disposition: HOME - Home Medications Comprehensive Discharge Medication List: Ambulatory Orders Duloxetine HCl 1 cap PO DAILY 03/02/19 Fentanyl 50 mcg TP Q3D 03/02/19 Humalog Kwikpen U-200 units SQ TID 03/02/19 Ibuprofen/Famotidine mg PO TID 03/02/19 Metformin HCl 1,000 mg PO DAILY 03/02/19 Oxycodone HCl 5 mg PO PRN PRN 03/02/19 Pennsaid PRN 03/02/19 Phenylephrine HCl 10 mg PRN 03/02/19 Tizanidine HCl 4 mg PO BID 03/02/19 Victoza - 0.6 units DAILY 03/02/19 Zolpidem Tartrate 10 mg PO HS PRN 03/02/19 Apixaban [Eliquis -] 5 mg PO BID #60 tablet 03/11/19 Duloxetine HCl [Cymbalta -] 60 mg PO DAILY #30 capsule. 03/11/19 Ferrous Sulfate [Feosol] 325 mg PO DAILY #30 tab 03/11/19 Folic Acid - 1 mg PO DAILY #30 tablet 03/11/19 Gabapentin [Neurontin -] 300 mg PO QID #120 capsule 03/11/19 Lisinopril [Prinivil] 10 mg PO DAILY #30 tablet 03/11/19 Morphine *Immediate Release* [Msir -] 15 mg PO Q4H PRN #6 tab MDD 3 03/11/19 Morphine *Sr* [Ms Contin -] 15 mg PO Q12H #10 tablet.sa MDD 2 03/11/19 Pantoprazole Sodium [Protonix -] 20 mg PO DAILY #30 tablet.ec 03/11/19 Potassium Chloride [K-Dur -] 20 meq PO DAILY #30 tablet.er 03/11/19 Tizanidine HCl 4 mg PO TID #90 tablet 03/11/19 metFORMIN HCL [Glucophage -] 500 mg PO BID #60 tablet 03/11/19 Metoprolol Tartrate [Lopressor -] 50 mg PO BID #60 tablet MDD 2 03/12/19
--- NOTE | 2019-03-12 14:16 | PN ---
Progress Note, Physician Chief Complaint: No recurrent palpitations or sob History of Present Illness: 68 year old with pmhx of dm and spinal disease s/p recent c-spine surgery Episodes of tachycardia and sob. Noted to have afib with RVR on 03/10/19 - Current Medication List Current Medications: Active Medications Apixaban (Eliquis -) 5 mg PO BID [facility] Last Admin: 03/12/19 09:40 Dose: 5 mg Diphenhydramine HCl (Benadryl -) 25 mg PO Q6H PRN PRN Reason: FOR ITCHING Duloxetine HCl (Cymbalta -) 60 mg PO DAILY [facility] Last Admin: 03/12/19 09:38 Dose: 60 mg Ferrous Sulfate (Feosol -) 325 mg PO DAILY@0800 [facility] Last Admin: 03/12/19 09:38 Dose: 325 mg Folic Acid (Folic Acid -) 1 mg PO DAILY [facility] Last Admin: 03/12/19 09:38 Dose: 1 mg Gabapentin (Neurontin -) 300 mg PO QID [facility] Last Admin: 03/12/19 13:38 Dose: 300 mg Insulin Aspart (Novolog Vial Sliding Scale -) 1 vial SQ TIDAC [facility]; Protocol Last Admin: 03/12/19 06:31 Dose: 4 units Lisinopril (Prinivil) 10 mg PO DAILY [facility] Last Admin: 03/12/19 09:38 Dose: 10 mg Metformin HCl (Glucophage -) 500 mg PO BID@0700,1630 [facility] Last Admin: 03/12/19 06:29 Dose: Not Given Metoprolol Tartrate (Lopressor -) 50 mg PO BID [facility] Last Admin: 03/12/19 09:36 Dose: 50 mg Miscellaneous (Duragesic Patch Waste) 1 each TD PRN PRN PRN Reason: PAIN Miscellaneous (Duragesic Patch Waste) 1 each TD PRN PRN PRN Reason: PAIN Morphine Sulfate (Msir -) 15 mg PO Q4H PRN PRN Reason: PAIN SCALE 5-10 Last Admin: 03/12/19 13:37 Dose: 15 mg Morphine Sulfate (Ms Contin -) 15 mg PO BID [facility] Last Admin: 03/12/19 09:37 Dose: 15 mg Ondansetron HCl (Zofran Injection) 4 mg IVPUSH Q6H PRN PRN Reason: NAUSEA Pantoprazole Sodium (Protonix Iv) 40 mg IVPUSH BID [facility] Last Admin: 03/12/19 09:38 Dose: 40 mg Potassium Chloride (K-Dur -) 20 meq PO DAILY [facility] Last Admin: 03/12/19 09:40 Dose: 20 meq Tizanidine HCl (Tizanidine Hcl) 4 mg PO TID [facility] Last Admin: 03/12/19 13:38 Dose: 4 mg - Objective Vital Signs: Vital Signs Temperature 98.2 F 03/12/19 06:00 Pulse Rate 65 03/12/19 06:00 Respiratory Rate 20 03/12/19 06:00 Blood Pressure 141/82 03/12/19 06:00 O2 Sat by Pulse Oximetry (%) 97 03/11/19 20:21 Constitutional: Yes: No Distress Neck: Yes: Supple Cardiovascular: Yes: Regular Rate and Rhythm, S1, S2 Respiratory: Yes: CTA Bilaterally Gastrointestinal: Yes: Soft Edema: No Labs: CBC, BMP 03/12/19 05:30 03/12/19 05:30 INR, PTT INR 0.96 (0.83-1.09) 03/02/19 15:21 Assessment/Plan 68 year old with pmhx of dm and spinal disease s/p recent c-spine surgery Today says developed sob. Also with some mild right shoulder and chest wall tenderness to palpation (mainly shoulder) BP elevated Sinus tachy Elevated D-dimer 1) Afib -doing well now On metoprolol 50mg q12. Would continue this dose or if easier for patient can change to metoprolol xl 100mg daily On apixaban for AC CTA no PE -Echocardiogram on 03/03 with normal LVEF and no significant valve disease. -NST 03/02/19 no ischemia -Pain control Patient being discharged today. Will follow up with cardiology in [place]
--- NOTE | 2019-03-12 15:34 | SURG ---
Surgery Welding Tester Note Welding Tester: Marc Bowen PA-C Date of Service: 03/05/19 Diagnosis: Lateral Cervical Osteophytes Procedure: 1. Exploration of spinal fusion 2. Fluoroscopy 3. Local autograft 4. Posterior segmental instrumentation 5. C3 posterior osteotomy 6. C4 posterior osteotomy 7. C5 posterior osteotomy 8. C6 posterior osteotomy 9. C7 posterior osteotomy 10. Repair of durotomy 11. Bilateral soft tissue advancement flaps (50cm2) 12. Bahai of Lordosis I was present for the entirety of the operative procedure. For further detail, please refer to operative report. Visit type - Case Type Case Type: ED Admission - Emergency Emergency Visit: Yes ED Registration Date: 03/02/19 Care time: The patient presented to the Emergency Department on the above date and was hospitalized for further evaluation of their emergent condition. - New patient This patient is new to me today: Yes Date on this admission: 03/12/19
[2019-03-13] MEDS ORDERED: fentaNYL 50mcg/hr PATCH.TD72 TD SCH (14:15)
[2019-03-16] MEDS ORDERED: FENTANYL PATCH WASTE TD PRN (16:26)
== END 2019-03-12 14:30 | disposition home or self-care (01) | DRG 454 ==
LOC: JER 13:02 → JERBED 14:30 → J5S 20:21 → J6S 03-03 21:21 → J4W 03-10 15:08
PROVIDERS: ADMIT Family Medicine; ATTEND Family Medicine
PROC: 0RG2071 Fusion of 2 or more Cervical Vertebral Joints with Autologous Tissue Substitute, Posterior Approach, Posterior Column, Open Approach (ICD-10-PCS; 2019-03-03)
PROC: 01N10ZZ Release Cervical Nerve, Open Approach (ICD-10-PCS; 2019-03-03)
PROC: 00JV0ZZ Inspection of Spinal Cord, Open Approach (ICD-10-PCS; 2019-03-03)
PROC: 0RP104Z Removal of Internal Fixation Device from Cervical Vertebral Joint, Open Approach (ICD-10-PCS; 2019-03-03)
PROC: 00NW0ZZ Release Cervical Spinal Cord, Open Approach (ICD-10-PCS; 2019-03-03)
PROC: B01BZZZ Fluoroscopy of Spinal Cord (ICD-10-PCS; 2019-03-03)
PROC: 0RG20AJ Fusion of 2 or more Cervical Vertebral Joints with Interbody Fusion Device, Posterior Approach, Anterior Column, Open Approach (ICD-10-PCS; principal; 2019-03-03 13:00)
DX: M47.12 Other spondylosis with myelopathy, cervical region (principal); G82.20 Paraplegia, unspecified; M40.292 Other kyphosis, cervical region; E11.9 Type 2 diabetes mellitus without complications; M62.81 Muscle weakness (generalized); M54.9 Dorsalgia, unspecified; M40.50 Lordosis, unspecified, site unspecified; I48.91 Unspecified atrial fibrillation; Z99.3 Dependence on wheelchair; Z79.84 Long term (current) use of oral hypoglycemic drugs; I44.0 Atrioventricular block, first degree; I10 Essential (primary) hypertension; G96.19 Other disorders of meninges, not elsewhere classified
CPT/HCPCS: 36415; 71045-TC-FY; 71046-TC-FY; 71275-TC; 72125-TC; 78452-TC; 80048; 80053; 82550; 82553; 82728; 82962; 83036; 83540; 83550; 83735; 84100; 84484; 85025; 85379; 85610; 85730; 86850; 86900; 86901; 93005; 93010; 93017; 93306-TC; 93970-TC; 94760; 97162-GP; 99283-25; A9502; J0131; J1644; J2785; J7030

== ENCOUNTER 2021-07-13 04:11 | Inpatient (IN) | payer OTHER, BC ==
[2021-07-12 16:01] VITALS: BMI 29.8
[2021-07-13] MEDS ORDERED: GENTAMICIN SO4 80 MG/2 ML VIAL ONE (07:12)
[2021-07-13] MEDS ORDERED: BUPIVACAINE HCL/PF 0.5% (5MG/ML) 10 ML VIAL ONE (07:13)
[2021-07-13] MEDS ORDERED: THROMBIN (BOVINE) 20,000 UNIT VIAL TP ONE (07:13)
[2021-07-13] MEDS ORDERED: BACITRACIN 15 GM TUBE TOPICAL OINTMENT ONE (07:19)
[2021-07-13] MEDS ORDERED: LIDOCAINE HCL 1% EPINEPHRINE 1:200,000 30 ML VIAL (PF) ONE (07:19)
[2021-07-13] MEDS ORDERED: BENZOIN/ALOE VERA/STORAX/TOLU 58 ML BOTTLE ONE (07:36)
[2021-07-13] MEDS ORDERED: BUPIVACAINE LIPOSOME/PF (EXPAREL) 266 MG/20 ML VIAL ONE (07:46)
[2021-07-13] MEDS ORDERED: PROPOFOL 20 ML ONE ×3 (08:16)
[2021-07-13] MEDS ORDERED: ROCURONIUM BROMIDE 50 MG/5 ML SYRINGE ONE (08:16)
[2021-07-13] MEDS ORDERED: fentaNYL CITRATE 250 MCG/5 ML VIAL ONE ×2 (08:16→11:04)
[2021-07-13] MEDS ORDERED: VANCOMYCIN 1,000 MG VIAL (RESTRICTED TO ID ONLY) IVPB ONE (08:35)
[2021-07-13] MEDS ORDERED: ceFAZolin SODIUM 1 GM VIAL IVPB ONE ×2 (08:39→15:04)
[2021-07-13] MEDS ORDERED: LIDOCAINE 1%/EPI 1:100000 (50 ML MULTI DOSE VIAL) INF ONE (08:58)
[2021-07-13] MEDS ORDERED: ONDANSETRON 4 MG/2 ML VIAL ONE (09:03)
[2021-07-13] MEDS ORDERED: KETOROLAC TROMETHAMINE 30 MG/1 ML VIAL ONE (09:03)
[2021-07-13] MEDS ORDERED: DEXAMETHASONE SOD PHOSPHATE 4 MG/1 ML VIAL ONE (09:03)
[2021-07-13] MEDS ORDERED: TRANEXAMIC ACID 1000 MG/10 ML VIAL ONE (09:03)
[2021-07-13] MEDS ORDERED: GENTAMICIN SO4 80 MG/2 ML VIAL IVPB ONE ×2 (09:10→10:10)
[2021-07-13] MEDS ORDERED: LIDOCAINE HCL 0.5% EPINEPHRINE 1:200,000 50 ML VIAL IJ ONE (09:10)
[2021-07-13] MEDS ORDERED: THROMBIN (BOVINE) 5,000 UNIT VIAL TP ONE (09:10)
[2021-07-13] MEDS ORDERED: BACITRACIN 50,000 UNITS VIAL TP ONE (10:10)
[2021-07-13] MEDS ORDERED: HYDROGEN PEROXIDE 473 ML PO ONE (10:10)
[2021-07-13] MEDS ORDERED: NEOSTIGMINE METHYLSULFATE 0.5 MG/1 ML - 10 ML MDV ONE (12:12)
[2021-07-13] MEDS ORDERED: GLYCOPYRROLATE 0.2 MG/1 ML VIAL ONE ×2 (12:13)
[2021-07-13] MEDS ORDERED: BUPIVACAINE HCL/PF 0.5% (5MG/ML) 10 ML VIAL IJ ONE (12:20)
[2021-07-13] MEDS ORDERED: BUPIVACAINE LIPOSOME/PF (EXPAREL) 266 MG/20 ML VIAL NR ONE (12:20)
[2021-07-13] MEDS ORDERED: MIDAZOLAM HCL 2 MG/2 ML SINGLE DOSE VIAL ONE (13:15)
[2021-07-13] MEDS ORDERED: ONDANSETRON 4 MG/2 ML VIAL IVPUSH PRN ×2 (13:24→13:30)
[2021-07-13] MEDS ORDERED: oxyCODONE HCL 5 MG TABLET PO PRN ×3 (13:24→13:30)
[2021-07-13] MEDS ORDERED: HYDROmorphone HCL CARPU-JECT 2 MG/1 ML DISP.SYRIN SQ PRN (13:24)
[2021-07-13] MEDS ORDERED: HYDROmorphone *PCA* 10MG/50ML DISP.SYRIN PCA SCH (13:30)
[2021-07-13] MEDS ORDERED: PROMETHAZINE HCL 25 MG/1 ML VIAL IVPB PRN (13:30)
[2021-07-13] MEDS ORDERED: ACETAMINOPHEN 500 MG TABLET (FP) PO SCH (13:45)
[2021-07-13] MEDS ORDERED: HYDROmorphone *PCA* 10MG/50ML DISP.SYRIN PCA ONE (14:35)
[2021-07-13] MEDS ORDERED: ACETAMINOPHEN 1000 MG/100 ML VIAL (NON FORMULARY) IVPB ONE (14:45)
[2021-07-13] MEDS ORDERED: ceFAZolin SODIUM 1 GM VIAL ONE (15:00)
[2021-07-13] MEDS: INSULIN SLIDING SCALE (NOVOLOG) 1 VIAL SQ SCH (17:54)
[2021-07-13] MEDS ORDERED: PT OWN MED DRAWER 7, Y5N ONE (17:55)
[2021-07-13] MEDS: ACETAMINOPHEN 1000 MG/100 ML VIAL (NON FORMULARY) IVPB SCH ×2 (18:12→21:30)
[2021-07-13] MEDS: CEFAZOLIN 2 GM/D5W 2 GM/50 ML ML IVPB SCH ×2 (18:13→21:53)
[2021-07-13] MEDS: LACTATED RINGERS SOLUTION 1,000 ML IV SCH (18:17)
[2021-07-13] MEDS: TIZANIDINE HCL 4 MG TABLET PO SCH ×2 (18:17→21:42)
[2021-07-14] MEDS: ACETAMINOPHEN 1000 MG/100 ML VIAL (NON FORMULARY) IVPB SCH ×2 (03:02→08:08)
[2021-07-14] MEDS: LACTATED RINGERS SOLUTION 1,000 ML IV SCH ×4 (03:05→20:58)
[2021-07-14] MEDS: CEFAZOLIN 2 GM/D5W 2 GM/50 ML ML IVPB SCH (03:32)
[2021-07-14] MEDS: TIZANIDINE HCL 4 MG TABLET PO SCH ×3 (06:21→20:59)
[2021-07-14] MEDS: LIRAGLUTIDE 0.6 MG/0.1 ML PEN.INJCTR SQ SCH (06:21)
[2021-07-14] MEDS: INSULIN SLIDING SCALE (NOVOLOG) 1 VIAL SQ SCH ×3 (06:26→17:11)
[2021-07-14 09:03] LABS: BASO % 0.9 % (0-2.0); EOS % 1.3 % (0-4.5); HEMATOCRIT 28.2 % (35.4-49); HEMOGLOBIN 10.2 GM/dL (11.7-16.9); LYMPH % 22.2 % (8-40); MCH 32.9 pg (25.7-33.7); MCHC 36.1 g/dl (32.0-35.9); MEAN PLT VOLUME 8.3 fl (7.5-11.1); MONO % 8.9 % (3.8-10.2); NEUT % 66.7 % (42.8-82.8); PLATELET COUNT 183 10^3/uL (134-434); RDW 13.3 % (11.9-15.9); WHITE BLOOD COUNT 8.3 K/mm3 (4.0-10.0)
[2021-07-14 09:26] LABS: CALCIUM 7.9 mg/dL (8.5-10.1)
[2021-07-14 09:30] LABS: CREATININE 0.9 mg/dL (0.55-1.3)
[2021-07-14] MEDS: amLODIPine BESYLATE 10 MG TABLET (FP) PO SCH (10:02)
[2021-07-14] MEDS: DULoxetine HCL 30 MG CAPSULE.DR PO SCH (11:27)
[2021-07-14] MEDS: PREGABALIN 50 MG CAPSULE PO SCH ×2 (11:27→20:59)
[2021-07-14] MEDS: INSULIN LISPRO SQ SCH ×2 (13:05→13:06)
[2021-07-14] MEDS ORDERED: PT OWN MED DRAWER 7, Y5N ONE ×3 (14:28→20:46)
[2021-07-14] MEDS ORDERED: PCA PUMP NR ONE (14:30)
[2021-07-14] MEDS: ACETAMINOPHEN 325 MG TABLET (FP) PO SCH ×3 (14:45→23:07)
[2021-07-14] MEDS ORDERED: DOCUSATE SODIUM 100 MG CAPSULE (FP) PO PRN (15:06)
[2021-07-14] MEDS: HEPARIN NA (PORCINE) 5,000 UNITS/ML 1ML VIAL SQ SCH ×2 (15:56→20:59)
[2021-07-14] MEDS ORDERED: ceFAZolin SODIUM 1 GM VIAL ONE (17:13)
[2021-07-14] MEDS ORDERED: DEXTROSE 5%-WATER - 50 ML IVPB ONE (17:14)
[2021-07-14] MEDS: CEFAZOLIN 1 GM in DEXTROSE 5%-WATER - 50 ML IVPB SCH (17:15)
[2021-07-14] MEDS: oxyCODONE HCL 5 MG TABLET PO PRN ×2 (18:52→23:06)
[2021-07-14] MEDS: SENNOSIDES 8.6MG TABLET (FP) PO SCH (20:59)
[2021-07-15] MEDS ORDERED: ceFAZolin SODIUM 1 GM VIAL ONE ×3 (01:05→18:29)
[2021-07-15] MEDS ORDERED: DEXTROSE 5%-WATER - 50 ML IVPB ONE ×3 (01:05→18:29)
[2021-07-15] MEDS: CEFAZOLIN 1 GM in DEXTROSE 5%-WATER - 50 ML IVPB SCH ×3 (01:08→18:44)
[2021-07-15] MEDS: oxyCODONE HCL 5 MG TABLET PO PRN ×4 (02:01→20:18)
[2021-07-15] MEDS: traMADol HCL 50 MG TABLET PO PRN (02:01)
[2021-07-15] MEDS: ACETAMINOPHEN 325 MG TABLET (FP) PO SCH ×6 (03:24→23:00)
[2021-07-15] MEDS ORDERED: PT OWN MED DRAWER 7, Y5N ONE ×5 (06:05→20:16)
[2021-07-15] MEDS: TIZANIDINE HCL 4 MG TABLET PO SCH ×3 (06:14→21:49)
[2021-07-15] MEDS: HEPARIN NA (PORCINE) 5,000 UNITS/ML 1ML VIAL SQ SCH ×3 (06:14→21:49)
[2021-07-15] MEDS: LIRAGLUTIDE 0.6 MG/0.1 ML PEN.INJCTR SQ SCH (06:15)
[2021-07-15] MEDS: LACTATED RINGERS SOLUTION 1,000 ML IV SCH ×2 (06:15→16:55)
[2021-07-15] MEDS: INSULIN SLIDING SCALE (NOVOLOG) 1 VIAL SQ SCH ×3 (06:15→17:02)
[2021-07-15] MEDS: amLODIPine BESYLATE 10 MG TABLET (FP) PO SCH (09:49)
[2021-07-15] MEDS: PREGABALIN 50 MG CAPSULE PO SCH ×2 (09:49→21:49)
[2021-07-15] MEDS: DULoxetine HCL 30 MG CAPSULE.DR PO SCH (09:49)
[2021-07-15 10:00] LABS: HEMOGLOBIN 10.3 GM/dL (11.7-16.9); MCHC 36.6 g/dl (32.0-35.9); MEAN CELL VOLUME 90.3 fl (80-96); MEAN PLT VOLUME 8.3 fl (7.5-11.1); PLATELET COUNT 140 10^3/uL (134-434); RDW 13.1 % (11.9-15.9)
[2021-07-15 10:20] LABS: BLOOD UREA NITROGEN 9.4 mg/dL (7-18)
[2021-07-15 10:21] LABS: MAGNESIUM 1.7 mg/dL (1.8-2.4)
[2021-07-15 10:24] LABS: CREATININE 0.7 mg/dL (0.55-1.3); PHOSPHOROUS 3.4 mg/dL (2.5-4.9)
[2021-07-15] MEDS ORDERED: MAGNESIUM SULF 50% (8.12 MEQ/2 ML-1 GM VIAL) IVPB ONE (11:58)
[2021-07-15] MEDS ORDERED: INSULIN (NOVOLOG) ASPART 100 UNITS/ML 10ML VIAL ONE (12:03)
[2021-07-15] MEDS ORDERED: MAGNESIUM SULFATE IN WATER 2 GM/50 ML IVPB IVPB ONE (12:30)
[2021-07-15] MEDS: SENNOSIDES 8.6MG TABLET (FP) PO SCH (21:49)
[2021-07-16] MEDS ORDERED: DEXTROSE 5%-WATER - 50 ML IVPB ONE ×3 (00:58→18:18)
[2021-07-16] MEDS ORDERED: ceFAZolin SODIUM 1 GM VIAL ONE ×3 (00:58→18:17)
[2021-07-16] MEDS: CEFAZOLIN 1 GM in DEXTROSE 5%-WATER - 50 ML IVPB SCH ×3 (01:30→18:29)
[2021-07-16] MEDS: ACETAMINOPHEN 325 MG TABLET (FP) PO SCH ×6 (03:06→22:36)
[2021-07-16] MEDS ORDERED: PT OWN MED DRAWER 7, Y5N ONE ×3 (05:24→20:10)
[2021-07-16] MEDS: oxyCODONE HCL 5 MG TABLET PO PRN ×3 (05:44→22:40)
[2021-07-16] MEDS: TIZANIDINE HCL 4 MG TABLET PO SCH ×3 (05:44→21:16)
[2021-07-16] MEDS: HEPARIN NA (PORCINE) 5,000 UNITS/ML 1ML VIAL SQ SCH ×3 (05:52→21:16)
[2021-07-16] MEDS: INSULIN SLIDING SCALE (NOVOLOG) 1 VIAL SQ SCH ×3 (06:12→16:51)
[2021-07-16] MEDS: LIRAGLUTIDE 0.6 MG/0.1 ML PEN.INJCTR SQ SCH (06:16)
[2021-07-16 08:36] LABS: HEMATOCRIT 31.1 % (35.4-49); HEMOGLOBIN 11.3 GM/dL (11.7-16.9); MCH 32.6 pg (25.7-33.7); MCHC 36.2 g/dl (32.0-35.9); MEAN CELL VOLUME 90.1 fl (80-96); MEAN PLT VOLUME 8.1 fl (7.5-11.1); PLATELET COUNT 182 10^3/uL (134-434); RBC 3.45 M/mm3 (4.00-5.60); RDW 12.7 % (11.9-15.9)
[2021-07-16 08:53] LABS: CALCIUM 8.3 mg/dL (8.5-10.1)
[2021-07-16 08:54] LABS: BLOOD UREA NITROGEN 6.9 mg/dL (7-18); MAGNESIUM 1.7 mg/dL (1.8-2.4)
[2021-07-16] MEDS: traMADol HCL 50 MG TABLET PO PRN (08:54)
[2021-07-16 08:57] LABS: CREATININE 0.7 mg/dL (0.55-1.3); PHOSPHOROUS 3.8 mg/dL (2.5-4.9)
[2021-07-16] MEDS: DULoxetine HCL 30 MG CAPSULE.DR PO SCH (10:37)
[2021-07-16] MEDS: PREGABALIN 50 MG CAPSULE PO SCH ×2 (10:38→21:16)
[2021-07-16] MEDS: amLODIPine BESYLATE 10 MG TABLET (FP) PO SCH (10:39)
[2021-07-16] MEDS ORDERED: INSULIN (NOVOLOG) ASPART 100 UNITS/ML 10ML VIAL ONE (11:46)
[2021-07-16] MEDS: SENNOSIDES 8.6MG TABLET (FP) PO SCH (21:16)
[2021-07-17] MEDS ORDERED: DEXTROSE 5%-WATER - 50 ML IVPB ONE ×2 (01:10→11:08)
[2021-07-17] MEDS ORDERED: ceFAZolin SODIUM 1 GM VIAL ONE ×2 (01:10→11:08)
[2021-07-17] MEDS: CEFAZOLIN 1 GM in DEXTROSE 5%-WATER - 50 ML IVPB SCH ×2 (01:34→11:11)
[2021-07-17] MEDS: oxyCODONE HCL 5 MG TABLET PO PRN ×2 (02:39→06:49)
[2021-07-17] MEDS: ACETAMINOPHEN 325 MG TABLET (FP) PO SCH ×4 (03:16→15:54)
[2021-07-17] MEDS: HEPARIN NA (PORCINE) 5,000 UNITS/ML 1ML VIAL SQ SCH ×2 (06:03→15:54)
[2021-07-17] MEDS: TIZANIDINE HCL 4 MG TABLET PO SCH ×2 (06:03→15:54)
[2021-07-17] MEDS: INSULIN SLIDING SCALE (NOVOLOG) 1 VIAL SQ SCH ×2 (06:05→13:00)
[2021-07-17] MEDS: LIRAGLUTIDE 0.6 MG/0.1 ML PEN.INJCTR SQ SCH (06:06)
[2021-07-17 06:29] VITALS: TEMP 98.5
[2021-07-17] MEDS ORDERED: LACTATED RINGERS SOLUTION 1,000 ML IV SCH (08:11)
[2021-07-17 08:46] LABS: HEMATOCRIT 32.6 % (35.4-49); HEMOGLOBIN 11.8 GM/dL (11.7-16.9); MCH 32.6 pg (25.7-33.7); MCHC 36.1 g/dl (32.0-35.9); MEAN CELL VOLUME 90.2 fl (80-96); MEAN PLT VOLUME 8.3 fl (7.5-11.1); PLATELET COUNT 198 10^3/uL (134-434); RBC 3.62 M/mm3 (4.00-5.60); RDW 13.2 % (11.9-15.9); WHITE BLOOD COUNT 6.3 K/mm3 (4.0-10.0)
[2021-07-17] MEDS: PREGABALIN 50 MG CAPSULE PO SCH (11:12)
[2021-07-17] MEDS: amLODIPine BESYLATE 10 MG TABLET (FP) PO SCH (11:12)
[2021-07-17] MEDS: DULoxetine HCL 30 MG CAPSULE.DR PO SCH (11:12)
[2021-07-17 11:45] LABS: CALCIUM 8.5 mg/dL (8.5-10.1)
[2021-07-17 11:49] LABS: CREATININE 0.7 mg/dL (0.55-1.3); MAGNESIUM 1.9 mg/dL (1.8-2.4)
[2021-07-17 11:50] LABS: PHOSPHOROUS 3.8 mg/dL (2.5-4.9)
[2021-07-17] MEDS ORDERED: PT OWN MED DRAWER 7, Y5N ONE (14:31)
[2021-07-17 16:20] VITALS: BP 158/97; PULSE 76
== END 2021-07-17 17:13 | disposition home or self-care (01) | DRG 460 ==
LOC: J2C 04:11 → J8W 16:30
PROVIDERS: ADMIT Neurological Surgery; ATTEND Internal Medicine
PROC: 0RG2071 Fusion of 2 or more Cervical Vertebral Joints with Autologous Tissue Substitute, Posterior Approach, Posterior Column, Open Approach (ICD-10-PCS; 2021-07-13)
PROC: 00NW0ZZ Release Cervical Spinal Cord, Open Approach (ICD-10-PCS; 2021-07-13)
PROC: 01N10ZZ Release Cervical Nerve, Open Approach (ICD-10-PCS; 2021-07-13)
PROC: 0PS304Z Reposition Cervical Vertebra with Internal Fixation Device, Open Approach (ICD-10-PCS; 2021-07-13)
PROC: 0RG4071 Fusion of Cervicothoracic Vertebral Joint with Autologous Tissue Substitute, Posterior Approach, Posterior Column, Open Approach (ICD-10-PCS; 2021-07-13)
PROC: 0RG6071 Fusion of Thoracic Vertebral Joint with Autologous Tissue Substitute, Posterior Approach, Posterior Column, Open Approach (ICD-10-PCS; 2021-07-13)
PROC: 0RPA04Z Removal of Internal Fixation Device from Thoracolumbar Vertebral Joint, Open Approach (ICD-10-PCS; 2021-07-13)
PROC: 00NX0ZZ Release Thoracic Spinal Cord, Open Approach (ICD-10-PCS; 2021-07-13)
PROC: 01N80ZZ Release Thoracic Nerve, Open Approach (ICD-10-PCS; 2021-07-13)
PROC: 00U20KZ Supplement Dura Mater with Nonautologous Tissue Substitute, Open Approach (ICD-10-PCS; 2021-07-13)
PROC: B01BZZZ Fluoroscopy of Spinal Cord (ICD-10-PCS; 2021-07-13)
PROC: 0RP104Z Removal of Internal Fixation Device from Cervical Vertebral Joint, Open Approach (ICD-10-PCS; principal; 2021-07-13 08:00)
DX: M48.02 Spinal stenosis, cervical region (principal); M47.12 Other spondylosis with myelopathy, cervical region; M47.22 Other spondylosis with radiculopathy, cervical region; M40.202 Unspecified kyphosis, cervical region; I10 Essential (primary) hypertension; E11.9 Type 2 diabetes mellitus without complications; E78.00 Pure hypercholesterolemia, unspecified; M54.9 Dorsalgia, unspecified
CPT/HCPCS: 36415; 72125-TC; 80048; 82962; 83735; 84100; 85025; 85027; 86850; 86900; 86901; 94760; 97116-GP; 97161-GP; J0131; J1644